=== PATIENT | female | born 1935 | race Caucasian/White ===

== ENCOUNTER 2017-11-19 11:51 | Emergency (ER) | payer MEDICARE, BC ==
--- NOTE | 2017-11-19 11:59 | EDM.PDOC ---
ED HPI GENERAL MEDICAL PROBLEM - General Chief Complaint: Upper Extremity Injury/Pain Stated Complaint: [id number] FELL AND HAS SKIN TEAR ON ARM Time Seen by Provider: 11/19/17 11:59 Source of Information: Reports: Patient, Old Records, RN, RN Notes Reviewed History Limitations: Reports: No Limitations - History of Present Illness INITIAL COMMENTS - FREE TEXT/NARRATIVE: Arrives to ER by POV with c/o a skin tear to the Rt elbow sustained this morning when pt slipped on the ice and fell at her religion. Denies head or neck injury or pain, or any other injury. Pt states that her Rt elbow doesn't really hurt and has full ROM. Last tetanus vaccine >10yrs ago. Onset: Today, Sudden Location: Reports: Upper Extremity, Right Severity: Mild Improves with: Reports: None Worsens with: Reports: None Context: Reports: Other (fall) Associated Symptoms: Reports: No Other Symptoms - Related Data Allergies Allergy/AdvReac Type Severity Reaction Status Date / Time aspirin Allergy Severe Anaphylactic Verified 11/19/17 12:00 Shock lincomycin [From Lincocin] Allergy Severe Anaphylactic Verified 11/19/17 12:00 Shock Penicillins Allergy Severe Anaphylactic Verified 11/19/17 12:00 Shock calcium containing compounds Allergy Unknown unknown Uncoded 11/19/17 12:00 flu shot Allergy Unknown Other Uncoded 11/19/17 12:00 Home Meds: Home Meds Alendronate [Fosamax] 70 mg PO WEEKLY 05/04/16 [History] Citracal + D3 2 tab PO BID 05/04/16 [History] Cyanocobalamin (Vitamin B-12) [Vitamin B-12] 1,000 mcg PO DAILY 05/04/16 [ History] Enalapril [Vasotec] 10 mg PO DAILY 05/04/16 [History] Fish Oil/Rayle-3 Fatty Acids [Fish Oil 1,000 MG] 1 cap PO NOON,GABRIELLA 05/04/16 [ History] Furosemide 20 mg PO BID 05/04/16 [History] Gluc Mancia/Chondro Mancia A/Vit C/Mn [Glucosamine 1,500 Complex Cp] 1 cap PO DAILY [History] Linagliptin [Tradjenta] 5 mg PO .NOON 05/04/16 [History] Metoprolol Tartrate 25 mg PO BID 05/04/16 [History] Omeprazole 20 mg PO ACBREAKFAST 05/04/16 [History] Simvastatin [Zocor] 40 mg PO BEDTIME 05/04/16 [History] metFORMIN HCl [Metformin HCl] 1,000 mg PO BIDMEALS 05/04/16 [History] traMADol [Ultram] 50 mg PO Q8H PRN #15 tablet 05/08/16 [Rx] Docusate Sodium [Colace] 100 mg PO BID cap 05/20/16 [Rx] Sodium Chloride 1 gm PO BID #60 tablet 05/20/16 [Rx] Past Medical History HEENT History: Reports: Cataract Cardiovascular History: Reports: Blood Clots/VTE/DVT, High Cholesterol, Hypertension, Other (See Below) Other Cardiovascular History: "Broken Heart Syndrome" Respiratory History: Reports: None, COPD Gastrointestinal History: Reports: Diverticulosis, GERD Genitourinary History: Reports: Other (See Below) Other Genitourinary History: hyponatremial 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: Musculoskeletal History: Reports: Fracture, Other (See Below) Other Musculoskeletal History: pelvis fracture Neurological History: Reports: None Psychiatric History: Reports: Anxiety, Depression Endocrine/Metabolic History: Reports: Diabetes, Type II, Other (See Below) Other Endocrine/Metabolic History: SIADH Hematologic History: Reports: B12 Deficiency Dermatologic History: Reports: Cellulitis - Infectious Disease History Infectious Disease History: Reports: Chicken Pox - Past Surgical History HEENT Surgical History: Reports: None, Cataract Surgery GI Surgical History: Reports: Cholecystectomy, Colonoscopy, Other (See Below) Female Surgical History: Reports: Breast Biopsy Musculoskeletal Surgical History: Reports: Hip Replacement, Knee Replacement, Other (See Below) Social & Family History - Family History Family Medical History: Unobtainable Cardiac: Reports: [place] Oncologic: Reports: Colon, Lung - Tobacco Use Smoking Status *Q: Never Smoker Second Hand Smoke Exposure: No - Recreational Drug Use Recreational Drug Use: No - Living Situation & Occupation Occupation: Retired Review of Systems - Review of Systems Review Of Systems: ROS reveals no pertinent complaints other than HPI. ED EXAM, GENERAL - Physical Exam Exam: See Below Exam Limited By: No Limitations General Appearance: Alert, WD/WN, No Apparent Distress Throat/Mouth: Normal Voice, No Airway Compromise Head: Atraumatic, Normocephalic Neck: Normal Inspection, Supple, Non-Tender, Full Range of Motion Respiratory/Chest: No Respiratory Distress, Lungs Clear, Normal Breath Sounds, No Accessory Muscle Use, Chest Non-Tender Cardiovascular: Regular Rate, Rhythm Peripheral Pulses: 3+: Radial (L), Radial (R) Back Exam: Normal Inspection Extremities: Normal Inspection, Normal Range of Motion, Non-Tender, Normal Capillary Refill, No Pedal Edema Neurological: Alert, Oriented, Normal Cognition, Normal Gait, No Motor/Sensory Deficits Psychiatric: Normal Affect, Normal Mood Skin Exam: Warm, Dry, No Rash, Wound/Incision (3cm superficial skin tear to Rt lateral elbow, no active bleeding, no FB, clean wound) Course - Vital Signs Last Recorded V/S: Last Vital Signs Temp 37.0 C 11/19/17 12:11 Pulse 74 11/19/17 12:11 Resp 16 11/19/17 12:11 BP 139/74 11/19/17 12:11 Pulse Ox 97 11/19/17 12:11 - Orders/Labs/Meds Orders: Active Orders 24 hr Category Date Time Status Vaccines to be Administered [RC] PER UNIT ROUTINE Care 11/19/17 12:12 Ordered Steri Strips Application [OM.PC] Routine Oth 11/19/17 12:12 Ordered Meds: Medications Discontinued Medications Generic Name Dose Route Start Last Admin Trade Name Freq PRN Reason Stop Dose Admin Diphtheria/Tetanus/Acell Pertussis 0.5 ml 11/19/17 12:12 11/19/17 12:20 Adacel IM 11/19/17 12:13 0.5 ml .ONCE ONE Administration - Re-Assessments/Exams Free Text/Narrative Re-Assessment/Exam: 11/19/17 RN cleansed wound and applied steri-strips and sterile dressing. Departure - Departure Time of Disposition: 12:13 Disposition: Home, Self-Care 01 Condition: Good Clinical Impression: Skin tear of right upper arm without complication Qualifiers: Encounter type: initial encounter Qualified Code(s): S41.111A - Laceration without foreign body of right upper arm, initial encounter Fall due to ice or snow Qualifiers: Encounter type: initial encounter Qualified Code(s): W00.9XXA - Unspecified fall due to ice and snow, initial encounter - Discharge Information Instructions: Skin Tear Care, [id number], Sterile Tape Wound Care Forms: ED Department Discharge Additional Instructions: Follow up in clinic or return to ER if any signs of wound infection develop. - My Orders Last 24 Hours: My Active Orders 11/19/17 12:12 Vaccines to be Administered [RC] PER UNIT ROUTINE Steri Strips Application [OM.PC] Routine - Assessment/Plan Last 24 Hours: My Active Orders 11/19/17 12:12 Vaccines to be Administered [RC] PER UNIT ROUTINE Steri Strips Application [OM.PC] Routine
[2017-11-19 12:12] VITALS: BP 139/74
[2017-11-19] MEDS: Diphtheria,Pertussis(Acell),Tetanus Vaccine 0.5 ML SDV IM ONE (12:20)
== END 2017-11-19 12:30 | disposition home or self-care (01) ==
LOC: DL.ED 11:51
DX: S51.011A Laceration without foreign body of right elbow, initial encounter (principal); E78.00 Pure hypercholesterolemia, unspecified; I10 Essential (primary) hypertension; E11.9 Type 2 diabetes mellitus without complications; Z88.6 Allergy status to analgesic agent; Z88.0 Allergy status to penicillin; Z88.8 Allergy status to other drugs, medicaments and biological substances; Z79.899 Other long term (current) drug therapy; Z23 Encounter for immunization; Z79.84 Long term (current) use of oral hypoglycemic drugs; W00.9XXA Unspecified fall due to ice and snow, initial encounter; Y92.22 Religious institution as the place of occurrence of the external cause
CPT/HCPCS: 90471; 90715; 99283

== ENCOUNTER 2019-03-10 17:13 | Emergency (ER) | payer MEDICARE, BC ==
--- NOTE | 2019-03-10 17:24 | EDM.PDOC ---
ED HPI GENERAL MEDICAL PROBLEM - General Chief Complaint: Skin Complaint Stated Complaint: BLISTER ON FOOT Time Seen by Provider: 03/10/19 17:24 Source of Information: Reports: Patient, Family, RN, RN Notes Reviewed History Limitations: Reports: No Limitations - History of Present Illness INITIAL COMMENTS - FREE TEXT/NARRATIVE: Pt to ER with daughters with c/o blisters and sores to the feet bilaterally. Daughter states the sores and blisters began today. She states she took pictures at noon and they have gotten worse since then. Patient has sores to the left great and second toes, a very large (6cm x 4cm) blister to the inside arch of the medial left foot. Also has small vesicles forming in the medial arch of the right foot. Patient states something similar to this happened about 2 months ago. She also had gotten scabies at the same time from a hotel. Patient denies recent fever or chills, N/V/D, CP, SOB. Denies pain in the feet. Patient states she is diabetic, but has good feeling in her feet. Patient states her skin has been itchy all over. Onset: Today, Sudden - Related Data Allergies Allergy/AdvReac Type Severity Reaction Status Date / Time aspirin Allergy Severe Anaphylactic Verified 03/10/19 17:43 Shock lincomycin [From Lincocin] Allergy Severe Anaphylactic Verified 03/10/19 17:43 Shock Penicillins Allergy Severe Anaphylactic Verified 03/10/19 17:43 Shock levofloxacin [From Levaquin] Allergy Intermediate Redness Verified 03/10/19 17: 43 salicylates Allergy Unknown unknown Verified 03/10/19 17:43 calcium containing compounds Allergy Unknown unknown Uncoded 11/19/17 12:00 Home Meds: Home Meds Alendronate [Fosamax] 70 mg PO WEEKLY 05/04/16 [History] Citracal + D3 2 tab PO BID 05/04/16 [History] Cyanocobalamin (Vitamin B-12) [Vitamin B-12] 1,000 mcg PO DAILY 05/04/16 [ History] Enalapril [Vasotec] 10 mg PO DAILY 05/04/16 [History] Fish Oil/[place]-3 Fatty Acids [Fish Oil 1,000 MG] 1 cap PO DAILY 05/04/16 [ History] Furosemide 20 mg PO DAILY 05/04/16 [History] Gluc Mancia/Chondro Mancia A/Vit C/Mn [Glucosamine 1,500 Complex Cp] 1 cap PO DAILY [History] Omeprazole 20 mg PO ACBREAKFAST 05/04/16 [History] Simvastatin [Zocor] 40 mg PO BEDTIME 05/04/16 [History] metFORMIN HCl [Metformin HCl] 1,000 mg PO BIDMEALS 05/04/16 [History] Latanoprost/Pf [Latanoprost 0.005% Eye Drop] 1 drop EYERT BEDTIME 06/29/18 [ History] Sertraline [Zoloft] 50 mg PO BEDTIME 03/10/19 [History] Past Medical History HEENT History: Reports: Cataract Cardiovascular History: Reports: Blood Clots/VTE/DVT, High Cholesterol, Hypertension, Other (See Below) Other Cardiovascular History: "Broken Heart Syndrome" Respiratory History: Reports: None, COPD Gastrointestinal History: Reports: Diverticulosis, GERD Genitourinary History: Reports: Other (See Below) Other Genitourinary History: 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: Musculoskeletal History: Reports: Fracture, Other (See Below) Other Musculoskeletal History: pelvis fracture, L2 fracture, left wrist fracture Neurological History: Reports: None Psychiatric History: Reports: Anxiety, Depression Endocrine/Metabolic History: Reports: Diabetes, Type II, Other (See Below) Other Endocrine/Metabolic History: SIADH Hematologic History: Reports: B12 Deficiency Dermatologic History: Reports: Cellulitis - Infectious Disease History Infectious Disease History: Reports: Chicken Pox - Past Surgical History HEENT Surgical History: Reports: None, Cataract Surgery, Other (See Below) Other HEENT Surgeries/Procedures: prosthetic left eye GI Surgical History: Reports: Cholecystectomy, Colonoscopy, Other (See Below) Female Surgical History: Reports: Breast Biopsy Musculoskeletal Surgical History: Reports: Hip Replacement, Knee Replacement, Other (See Below) Social & Family History - Family History Family Medical History: Unobtainable Cardiac: Reports: [place] Oncologic: Reports: Colon, Lung - Caffeine Use Caffeine Use: Reports: Coffee, Tea - Living Situation & Occupation Occupation: Retired ED ROS GENERAL - Review of Systems Review Of Systems: ROS reveals no pertinent complaints other than HPI. 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) Ears: Normal External Exam, Hearing Grossly Normal Nose: Normal Inspection Throat/Mouth: Normal Voice, No Airway Compromise Head: Atraumatic, Normocephalic Neck: Normal Inspection Respiratory/Chest: No Respiratory Distress, Lungs Clear, Normal Breath Sounds, No Accessory Muscle Use, Chest Non-Tender Cardiovascular: Normal Peripheral Pulses, Regular Rate, Rhythm, No Edema, No Gallop, No JVD, No Murmur, No Rub Peripheral Pulses: 2+: Radial (L), Radial (R), Dorsalis Pedis (L), Dorsalis Pedis (R) GI/Abdominal: Normal Bowel Sounds, Soft, Non-Tender (Female) Exam: Deferred Rectal (Female) Exam: Deferred Back Exam: Normal Inspection, Full Range of Motion Extremities: Normal Inspection, Normal Range of Motion, Non-Tender, No Pedal Edema, Normal Capillary Refill Neurological: Alert, Oriented, CN II-XII Intact, Normal Cognition, Normal Gait, Normal Reflexes, No Motor/Sensory Deficits Psychiatric: Normal Affect, Normal Mood Skin: Warm, Other (Left foot medial arch 6cm x 4cm blister, Right foot medial arch vesicles ) Location, Skin: Upper Extremity, Right, Lower Extremity, Left Characteristics: Vesicular (right), Bullous (left) Lymphatic: No Adenopathy Course - Vital Signs Last Recorded V/S: Last Vital Signs Temp 96.4 F 03/10/19 17:32 Pulse 70 03/10/19 17:32 Resp 14 03/10/19 17:32 BP 180/56 H 03/10/19 17:32 Pulse Ox 98 03/10/19 17:32 - Orders/Labs/Meds Labs: Laboratory Tests 03/10/19 03/10/19 03/10/19 Range/Units 17:55 17:55 17:55 WBC 7.5 (5.0-10.0) 10^3/uL RBC 4.58 (4.2-5.4) 10^6/uL Hgb 13.2 (12.0-16.0) g/dL Hct 38.3 (37.0-47.0) % MCV 83.6 (80-100) fL MCH 28.8 (27.0-34.0) pg MCHC 34.5 (33.0-35.0) g/dL Plt Count 267 D (150-450) 10^3/uL Neut % (Auto) 60.0 (42.2-75.2) % Lymph % (Auto) 19.8 L (20.5-50.1) % Estill % (Auto) 6.0 (2-8) % Eos % (Auto) 13.5 H (1.0-3.0) % Baso % (Auto) 0.7 (0.0-1.0) % ESR 3 (0-20) mm/hr Sodium 132 L (135-145) mmol/L Potassium 4.1 (3.6-5.0) mmol/L Chloride 95 L (101-111) mmol/L Carbon Dioxide 26.0 (21.0-31.0) mmol/L Anion Gap 15.1 BUN 17 (7-18) mg/dL Creatinine 0.7 (0.6-1.3) mg/dL Est Cr Clr Drug Dosing 51.75 mL/min Estimated GFR (MDRD) > 60 BUN/Creatinine Ratio 24.28 Glucose 194 H (74-105) mg/dL Lactic Acid (0.5-2.2) mmol/L Calcium 9.5 (8.4-10.2) mg/dl Total Bilirubin 0.6 (0.2-1.0) mg/dL AST 18 (10-42) IU/L ALT 15 (10-60) IU/L Alkaline Phosphatase 45 (42-121) IU/L C-Reactive Protein (0.0-1.3) mg/dL Total Protein 6.6 L (6.7-8.2) g/dl Albumin 4.1 (3.2-5.5) g/dl Globulin 2.5 Albumin/Globulin Ratio 1.64 03/10/19 03/10/19 Range/Units 17:55 17:55 WBC (5.0-10.0) 10^3/uL RBC (4.2-5.4) 10^6/uL Hgb (12.0-16.0) g/dL Hct (37.0-47.0) % MCV (80-100) fL MCH (27.0-34.0) pg MCHC (33.0-35.0) g/dL Plt Count (150-450) 10^3/uL Neut % (Auto) (42.2-75.2) % Lymph % (Auto) (20.5-50.1) % Estill % (Auto) (2-8) % Eos % (Auto) (1.0-3.0) % Baso % (Auto) (0.0-1.0) % ESR (0-20) mm/hr Sodium (135-145) mmol/L Potassium (3.6-5.0) mmol/L Chloride (101-111) mmol/L Carbon Dioxide (21.0-31.0) mmol/L Anion Gap BUN (7-18) mg/dL Creatinine (0.6-1.3) mg/dL Est Cr Clr Drug Dosing mL/min Estimated GFR (MDRD) BUN/Creatinine Ratio Glucose (74-105) mg/dL Lactic Acid 1.3 (0.5-2.2) mmol/L Calcium (8.4-10.2) mg/dl Total Bilirubin (0.2-1.0) mg/dL AST (10-42) IU/L ALT (10-60) IU/L Alkaline Phosphatase (42-121) IU/L C-Reactive Protein 0.5 (0.0-1.3) mg/dL Total Protein (6.7-8.2) g/dl Albumin (3.2-5.5) g/dl Globulin Albumin/Globulin Ratio Meds: Medications Discontinued Medications Generic Name Dose Route Start Last Admin Trade Name Freq PRN Reason Stop Dose Admin Doxycycline Hyclate 100 mg 03/10/19 18:11 03/10/19 18:26 Vibramycin PO 03/10/19 18:12 100 mg ONETIME ONE Administration Methylprednisolone Sodium Succinate 125 mg 03/10/19 18:18 03/10/19 18:26 Solu-Medrol IVPUSH 03/10/19 18:19 125 mg ONETIME ONE Administration Silver Sulfadiazine 1 gm 03/10/19 18:46 03/10/19 19:08 Silvadene 1% Cream 50 Gm TOP 03/10/19 18:47 1 gm ONETIME ONE Administration Triamcinolone Acetonide 80 mg 03/10/19 18:05 03/10/19 18:37 Kenalog-40 INJECT 03/10/19 18:06 Not Given ONETIME ONE Departure - Departure Time of Disposition: 18:48 Disposition: Home, Self-Care 01 Condition: Fair Clinical Impression: Blisters of multiple sites Atopic dermatitis Qualifiers: Atopic dermatitis type: unspecified Qualified Code(s): L20.9 - Atopic dermatitis, unspecified - Discharge Information *PRESCRIPTION DRUG MONITORING PROGRAM REVIEWED*: No *COPY OF PRESCRIPTION DRUG MONITORING REPORT IN PATIENT CHATA: No Instructions: Atopic Dermatitis, Contact Dermatitis, [id number] Referrals: PCP,None [Primary Care Provider] - Forms: ED Department Discharge Additional Instructions: Keep areas covered with gauze and silvadene until healed Apply silvadene 2-3 times daily until healed RX: Doxycycline and Prednisone Follow up with your primary care facility on Wednesday for possible MRI of the toes May follow up with podiatry
[2019-03-10 17:43] VITALS: BP 180/56
[2019-03-10] MEDS ORDERED: Triamcinolone Acetonide 40 MG/ML 1 ML MDV INJECT ONE (18:05)
[2019-03-10] MEDS ORDERED: Doxycycline 100 MG Cap PO ONE (18:11)
[2019-03-10] MEDS ORDERED: methylPREDNISolone Sodium Succinate 125 MG/2 ML SDV IVPUSH ONE (18:18)
[2019-03-10 18:29] LABS: ANION GAP 15.1; CHLORIDE,CL 95 mmol/L (101-111); SODIUM,NA 132 mmol/L (135-145)
[2019-03-10] MEDS ORDERED: Silver Sulfadiazine 1% Crm 50 GM Tube TOP ONE (18:46)
== END 2019-03-10 19:12 | disposition home or self-care (01) ==
LOC: DL.ED 17:13
DX: S90.822A Blister (nonthermal), left foot, initial encounter (principal); L20.9 Atopic dermatitis, unspecified; H54.7 Unspecified visual loss; J44.9 Chronic obstructive pulmonary disease, unspecified; I10 Essential (primary) hypertension; E78.00 Pure hypercholesterolemia, unspecified; K21.9 Gastro-esophageal reflux disease without esophagitis; F41.9 Anxiety disorder, unspecified; F32.9 Major depressive disorder, single episode, unspecified; E11.9 Type 2 diabetes mellitus without complications; Z79.84 Long term (current) use of oral hypoglycemic drugs; Z79.899 Other long term (current) drug therapy; Z88.6 Allergy status to analgesic agent; Z88.0 Allergy status to penicillin; Z88.8 Allergy status to other drugs, medicaments and biological substances; Z88.1 Allergy status to other antibiotic agents; X58.XXXA Exposure to other specified factors, initial encounter
CPT/HCPCS: 36415; 80053; 83605; 85025; 85651; 86140; 87040; 96372; 99283; A9270; J2930

== ENCOUNTER 2019-06-16 03:12 | Emergency (ER) | payer MEDICARE, BC ==
--- NOTE | 2019-06-16 03:19 | EDM.PDOC ---
ED HPI GENERAL MEDICAL PROBLEM - General Chief Complaint: Lower Extremity Injury/Pain Stated Complaint: AMBULANCE Time Seen by Provider: 06/16/19 03:14 Source of Information: Reports: Patient, EMS History Limitations: Reports: No Limitations - History of Present Illness INITIAL COMMENTS - FREE TEXT/NARRATIVE: EMS was told pt visiting daughter and was in kitchen and tripped over something , arrived with pt lying on floor alert c/o right hip pain. pt states was pushing a chair and tripped on something and fell. denies head/neck injury or pain. - Related Data Allergies Allergy/AdvReac Type Severity Reaction Status Date / Time aspirin Allergy Severe Anaphylactic Verified 06/16/19 03:16 Shock lincomycin [From Lincocin] Allergy Severe Anaphylactic Verified 06/16/19 03:16 Shock Penicillins Allergy Severe Anaphylactic Verified 06/16/19 03:16 Shock levofloxacin [From Levaquin] Allergy Intermediate Redness Verified 06/16/19 03: 16 salicylates Allergy Unknown unknown Verified 06/16/19 03:16 calcium containing compounds Allergy Unknown unknown Uncoded 06/16/19 03:16 Home Meds: Home Meds Alendronate [Fosamax] 70 mg PO WEEKLY 05/04/16 [History] Citracal + D3 2 tab PO BID 05/04/16 [History] Cyanocobalamin (Vitamin B-12) [Vitamin B-12] 1,000 mcg PO DAILY 05/04/16 [ History] Enalapril [Vasotec] 10 mg PO DAILY 05/04/16 [History] Fish Oil/[place]-3 Fatty Acids [Fish Oil 1,000 MG] 1 cap PO DAILY 05/04/16 [ History] Furosemide 20 mg PO DAILY 05/04/16 [History] Gluc Mancia/Chondro Mancia A/Vit C/Mn [Glucosamine 1,500 Complex Cp] 1 cap PO DAILY [History] Omeprazole 20 mg PO ACBREAKFAST 05/04/16 [History] Simvastatin [Zocor] 40 mg PO BEDTIME 05/04/16 [History] metFORMIN HCl [Metformin HCl] 1,000 mg PO BIDMEALS 05/04/16 [History] Latanoprost/Pf [Latanoprost 0.005% Eye Drop] 1 drop EYERT BEDTIME 06/29/18 [ History] Sertraline [Zoloft] 50 mg PO BEDTIME 03/10/19 [History] Past Medical History HEENT History: Reports: Cataract Cardiovascular History: Reports: Blood Clots/VTE/DVT, High Cholesterol, Hypertension, Other (See Below) Other Cardiovascular History: "Broken Heart Syndrome" Respiratory History: Reports: None, COPD Gastrointestinal History: Reports: Diverticulosis, GERD Genitourinary History: Reports: Other (See Below) Other Genitourinary History: hyponatremial [employer]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 History: Reports: Musculoskeletal History: Reports: Fracture, Other (See Below) Other Musculoskeletal History: pelvis fracture, L2 fracture, left wrist fracture Neurological History: Reports: None Psychiatric History: Reports: Anxiety, Depression Endocrine/Metabolic History: Reports: Diabetes, Type II, Other (See Below) Other Endocrine/Metabolic History: SIADH Hematologic History: Reports: B12 Deficiency Dermatologic History: Reports: Cellulitis - Infectious Disease History Infectious Disease History: Reports: Chicken Pox - Past Surgical History HEENT Surgical History: Reports: None, Cataract Surgery, Other (See Below) Other HEENT Surgeries/Procedures: prosthetic left eye GI Surgical History: Reports: Cholecystectomy, Colonoscopy, Other (See Below) Female Surgical History: Reports: Breast Biopsy Musculoskeletal Surgical History: Reports: Hip Replacement, Knee Replacement, Other (See Below) Social & Family History - Family History Family Medical History: Unobtainable Cardiac: Reports: [place] Oncologic: Reports: Colon, Lung - Caffeine Use Caffeine Use: Reports: Coffee, Tea - Living Situation & Occupation Occupation: Retired Review of Systems - Review of Systems Review Of Systems: ROS reveals no pertinent complaints other than HPI. ED EXAM, GENERAL - Physical Exam Exam: See Below Exam Limited By: No Limitations General Appearance: Alert, WD/WN, Mild Distress, Other (right hip when moved) Eye Exam: Left Eye: Other (blind) Ears: Hearing Loss Throat/Mouth: Normal Voice, No Airway Compromise Head: Atraumatic Neck: Non-Tender, Full Range of Motion Respiratory/Chest: No Respiratory Distress Cardiovascular: Regular Rate, Rhythm GI/Abdominal: Soft, Non-Tender Extremities: Other (right leg shorter, NV wnl, tender R/P.) Neurological: Alert, Oriented, Normal Cognition Psychiatric: Normal Affect, Normal Mood Skin Exam: Warm, Dry, Normal Color Lymphatic: No Adenopathy Course - Vital Signs Last Recorded V/S: Last Vital Signs Temp 36.6 C 06/16/19 03:17 Pulse 60 06/16/19 03:17 Resp 18 06/16/19 03:17 BP 170/69 H 06/16/19 03:17 Pulse Ox - Orders/Labs/Meds Orders: Active Orders 24 hr Category Date Time Status Chest 1V Frontal [CR] Urgent Exams 06/16/19 03:28 Taken Hip Min 2V or 3V w Pelvis Rt [CR] Stat Exams 06/16/19 03:13 Taken Labs: Laboratory Tests 06/16/19 06/16/19 Range/Units 03:27 03:27 WBC 8.8 (5.0-10.0) 10^3/uL RBC 4.60 (4.2-5.4) 10^6/uL Hgb 13.3 (12.0-16.0) g/dL Hct 38.4 (37.0-47.0) % MCV 83.5 (80-100) fL MCH 28.9 (27.0-34.0) pg MCHC 34.6 (33.0-35.0) g/dL Plt Count 283 (150-450) 10^3/uL Neut % (Auto) 62.2 (42.2-75.2) % Lymph % (Auto) 31.4 (20.5-50.1) % Clarke % (Auto) 5.3 (2-8) % Eos % (Auto) 0.6 L (1.0-3.0) % Baso % (Auto) 0.5 (0.0-1.0) % Add Manual Diff Yes Neutrophils % (Manual) 59 (42-75) % Band Neutrophils % 2 % Lymphocytes % (Manual) 36 (20-50) % Monocytes % (Manual) 3 (2-8) % Sodium 134 L (135-145) mmol/L Potassium 3.8 (3.6-5.0) mmol/L Chloride 96 L (101-111) mmol/L Carbon Dioxide 27.0 (21.0-31.0) mmol/L Anion Gap 14.8 BUN 27 H (7-18) mg/dL Creatinine 1.0 (0.6-1.3) mg/dL Est Cr Clr Drug Dosing 34.02 mL/min Estimated GFR (MDRD) 53 BUN/Creatinine Ratio 27.00 Glucose 228 H (74-105) mg/dL Calcium 10.1 (8.4-10.2) mg/dl Total Bilirubin 0.9 (0.2-1.0) mg/dL AST 16 (10-42) IU/L ALT 18 (10-60) IU/L Alkaline Phosphatase 48 (42-121) IU/L Total Protein 6.4 L (6.7-8.2) g/dl Albumin 3.7 (3.2-5.5) g/dl Globulin 2.7 Albumin/Globulin Ratio 1.37 Meds: Medications Discontinued Medications Generic Name Dose Route Start Last Admin Trade Name Kaity PRN Reason Stop Dose Admin Fentanyl 50 mcg 06/16/19 03:41 06/16/19 03:54 Sublimaze IVPUSH 06/16/19 03:42 50 mcg ONETIME ONE Administration - Re-Assessments/Exams Free Text/Narrative Re-Assessment/Exam: 06/16/19 04:12 case discussed with ortho Dr Marsh @ who kindly accepted pt. Departure - Departure Time of Disposition: 04:13 Disposition: DC/Tfer to Acute Hospital 02 Condition: Good Clinical Impression: Hip fracture, intertrochanteric Qualifiers: Encounter type: initial encounter Fracture type: closed Fracture alignment: nondisplaced Laterality: right Qualified Code(s): S72.144A - Nondisplaced intertrochanteric fracture of right femur, initial encounter for closed fracture - Discharge Information Forms: Interfacility Transfer EMTALA - My Orders Last 24 Hours: My Active Orders 06/16/19 03:13 Hip Min 2V or 3V w Pelvis Rt [CR] Stat 06/16/19 03:28 Chest 1V Frontal [CR] Urgent - Assessment/Plan Last 24 Hours: My Active Orders 06/16/19 03:13 Hip Min 2V or 3V w Pelvis Rt [CR] Stat 06/16/19 03:28 Chest 1V Frontal [CR] Urgent
[2019-06-16 03:36] VITALS: BP 170/69; PULSE 60
[2019-06-16 03:53] LABS: ANION GAP 14.8
[2019-06-16] MEDS: fentaNYL 100 MCG/2 ML SDV IVPUSH ONE (03:54)
== END 2019-06-16 05:15 ==
LOC: DL.ED 03:12
DX: S72.144A Nondisplaced intertrochanteric fracture of right femur, initial encounter for closed fracture (principal); I10 Essential (primary) hypertension; E11.9 Type 2 diabetes mellitus without complications; J44.9 Chronic obstructive pulmonary disease, unspecified; K21.9 Gastro-esophageal reflux disease without esophagitis; E78.00 Pure hypercholesterolemia, unspecified; F41.9 Anxiety disorder, unspecified; F32.9 Major depressive disorder, single episode, unspecified; Z86.718 Personal history of other venous thrombosis and embolism; Z88.0 Allergy status to penicillin; Z88.6 Allergy status to analgesic agent; Z88.1 Allergy status to other antibiotic agents; Z88.8 Allergy status to other drugs, medicaments and biological substances; Z79.84 Long term (current) use of oral hypoglycemic drugs; Z79.899 Other long term (current) drug therapy; W01.0XXA Fall on same level from slipping, tripping and stumbling without subsequent striking against object, initial encounter; Y93.89 Activity, other specified; Y92.89 Other specified places as the place of occurrence of the external cause
CPT/HCPCS: 36415; 51702; 71045; 73502; 80053; 81001; 85025; 96374; 99285; J3010

== ENCOUNTER 2019-06-20 09:48 | Inpatient (IN) | payer MEDICARE, BC ==
[2019-06-20] MEDS ORDERED: Docusate Sodium 100 MG Cap PO PRN (12:00)
[2019-06-20] MEDS ORDERED: Ondansetron 4 MG Tab.DIS PO PRN (12:00)
[2019-06-20] MEDS ORDERED: Magnesium Hydroxide 400 MG/5 ML Susp 30 ML Cup PO PRN ×2 (12:00→12:03)
[2019-06-20] MEDS ORDERED: Polyethylene Glycol 3350 Powder 17 GM Packet PO PRN (12:00)
[2019-06-20] MEDS ORDERED: SENNOSIDES 8.6 MG PO PRN (12:03)
[2019-06-20] MEDS ORDERED: 50% Dextrose in Water 50 ML Syringe IVPUSH PRN (12:15)
[2019-06-20] MEDS: Acetaminophen 500 MG Tab PO SCH ×2 (14:26→21:30)
--- NOTE | 2019-06-20 15:47 | HP ---
CHIEF COMPLAINT: Status post right total hip arthroplasty needing physical therapy and occupational therapy and admission to the Swing Bed. HISTORY OF PRESENTING ILLNESS: Ms. 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 At this time, the patient complains of very minimal pain at the surgical site, only 1 to 2/10 on ambulation, nonradiating, not associated with any nausea or vomiting. Denies any chest pain. No shortness of breath. No abdominal pain. The patient denied any history of chest pains on exertion. No history of dyspnea on exertion. No history of orthopnea or paroxysmal nocturnal dyspnea. The patient denied any history of hematemesis, hematochezia, or melenic stools. Normal bowel and bladder habits otherwise. REVIEW OF SYSTEMS: A complete review of system including skin, ear, nose, and throat, cardiovascular system, respiratory system, gastrointestinal system, genitourinary system, hematology, oncology, neurology, allergy, immunology, constitutional were all evaluated and were negative except for the above-said notes. PAST MEDICAL HISTORY: Significant for: 1. Hypertension. 2. Hyperlipidemia. 3. Type 2 diabetes mellitus. 4. History of Takotsubo's syndrome. 5. Giant-cell arteritis. 6. Bullous pemphigoid. 7. Chronic steroid therapy. 8. History of DVT in the past. 9. Osteoporosis. 10.Anemia. 11.Abdominal aortic aneurysm. PAST SURGICAL HISTORY: Significant for: 1. Total hip replacement on the left side in the past. 2. Laparoscopic cholecystectomy. 3. Colonoscopy. 4. Breast biopsy. 5. Arterial biopsy. 6. Abdominal exploration surgery. FAMILY HISTORY: Significant for lung cancer and liver cancer in her mother, coronary artery disease and diabetes in her father, diabetes and heart disease in her brother, and lung cancer and liver cancer in her another brother. SOCIAL HISTORY: The patient denies any history of smoking tobacco, history of occasional alcohol intake. ALLERGIES: The patient noted to have allergies to aspirin which causes anaphylactic shock, penicillins which causes anaphylactic shock, levofloxacin which causes redness, salicylate, and calcium containing compounds. HOME MEDICATIONS: 1. Risperdal 0.5 mg at bedtime. 2. Senna 8.6 mg twice a day. 3. Prednisone 20 mg daily. 4. Simvastatin 40 mg at bedtime. 5. Vitamin B12 1000 mcg daily. 6. Omeprazole 20 mg daily. 7. CellCept 1000 mg twice a day. 8. Milk of magnesium 30 mL daily as needed. 9. Metformin 1000 mg twice a day. 10.Metoprolol 50 mg twice a day. 11.Lasix 20 mg daily. 12.Lovenox 40 mg daily. 13.Enalapril 10 mg daily. 14.Fosamax 70 mg weekly. 15.Tylenol Extra-Strength q.8 hours. 16.Fish oil 1 capsule daily. PHYSICAL EXAMINATION: Vital Signs: Temperature of 97.9, pulse of 62, blood pressure 135/59, respiratory rate of 18, and saturating at 95% on room air. General Appearance: The patient is well oriented to time, place, and person. Follows commands spontaneously. Cardiovascular System: S1, S2 heard with normal intensity. No gallops. Respiratory System: Clear to auscultation bilaterally. No wheeze. No crepitations. Abdomen: Soft. Bowel sounds positive. Nontender. No rigidity. No guarding. No rebound tenderness. Extremities: No edema, bilateral lower extremities. Neurologic: No gross focal neurological deficit. LABORATORY DATA: As obtained from [facility]: Sodium 133, potassium 3.6, chloride 98, bicarb 25, creatinine 0.9. Glucose 270. ASSESSMENT: 1. Right-sided intertrochanteric femur fracture, status post gamma nail on June 16, 2019. 2. Hypertension. 3. Hyperlipidemia. 4. Type 2 diabetes mellitus. 5. Chronic steroid therapy. 6. History of giant cell arthritis and bullous pemphigoid, requiring prednisone treatment. 7. History of abdominal aortic aneurysm. 8. History of deep venous thrombosis in the past. PLAN: 1. Right intertrochanteric femur fracture. The patient required physical therapy and occupational therapy. She denies any ongoing pain. Continue the oral pain medications as needed. She is status post gamma nail fixation on June 16. 2. Hypertension. We will continue with current treatment plan. Continue with antihypertensive medications. 3. Type 2 diabetes mellitus. She has been on steroids, so this could be resulting in uncontrolled diabetes. Continue with metformin. We will have her on correction dose insulin as needed. Have her on hypoglycemic protocol. Try to avoid any hypoglycemic episodes. 4. Chronic steroid therapy. The patient has underlying giant-cell arteritis resulting left eye blindness and also bullous pemphigoid. We will continue with current dose of steroids. She is also noted to be on immunosuppressive therapy with CellCept. 5. DVT prophylaxis. The patient had history of DVT in the past. We will continue with the Lovenox for DVT prophylaxis on this admission. 6. We will order for basic labs including CBC and a BMP in a.m. 7. Code status: The patient wants to be full code. Discussed with family members at bedside. Reviewed the labs and medications. Reviewed the charts obtained from [facility]. [facility] /[id number]
[2019-06-20] MEDS: metFORMIN 500 MG Tab PO SCH (17:15)
[2019-06-20] MEDS: Insulin Lispro 100 Units/ML 3 ML Vial SUBCUT SCH ×2 (17:16→21:28)
[2019-06-20] MEDS: Latanoprost 0.005% Ophth Soln 2.5 ML Bottle EYERT SCH (21:26)
[2019-06-20] MEDS: Calcium Carbonate/Vitamin D3 1250 MG-200 Unit Tab PO SCH (21:27)
[2019-06-20] MEDS: Mycophenolate Mofetil 250 MG Cap PO SCH (21:28)
[2019-06-20] MEDS: Metoprolol Tartrate 50 MG Tab PO SCH (21:29)
[2019-06-20] MEDS: Simvastatin 40 MG Tab PO SCH (21:30)
[2019-06-20] MEDS: risperiDONE 0.5 MG Tab PO SCH (21:30)
[2019-06-21] MEDS: Acetaminophen 500 MG Tab PO SCH ×3 (05:56→21:53)
[2019-06-21] MEDS: Omeprazole 20 MG Cap.CR PO SCH (05:56)
[2019-06-21 07:15] LABS: ANION GAP 14.2; CHLORIDE,CL 97 mmol/L (101-111); SODIUM,NA 133 mmol/L (135-145)
[2019-06-21] MEDS: Cyanocobalamin (Vitamin B12) 1,000 MCG Tab PO SCH (08:46)
[2019-06-21] MEDS: Calcium Carbonate/Vitamin D3 1250 MG-200 Unit Tab PO SCH ×2 (08:46→21:51)
[2019-06-21] MEDS: Furosemide 20 MG Tab PO SCH (08:46)
[2019-06-21] MEDS: Metoprolol Tartrate 50 MG Tab PO SCH ×2 (08:46→21:51)
[2019-06-21] MEDS: predniSONE 20 MG Tab PO SCH (08:47)
[2019-06-21] MEDS: metFORMIN 500 MG Tab PO SCH ×2 (08:47→17:27)
[2019-06-21] MEDS: Enoxaparin 40 MG/0.4 ML Syringe SUBCUT SCH (08:47)
[2019-06-21] MEDS: Insulin Lispro 100 Units/ML 3 ML Vial SUBCUT SCH ×4 (08:48→22:14)
[2019-06-21] MEDS: Mycophenolate Mofetil 250 MG Cap PO SCH ×2 (08:48→21:52)
[2019-06-21] MEDS: risperiDONE 0.5 MG Tab PO SCH (21:51)
[2019-06-21] MEDS: Simvastatin 40 MG Tab PO SCH (21:53)
[2019-06-21] MEDS: Latanoprost 0.005% Ophth Soln 2.5 ML Bottle EYERT SCH (21:55)
[2019-06-22] MEDS: Acetaminophen 500 MG Tab PO SCH ×3 (06:15→21:40)
[2019-06-22] MEDS: Omeprazole 20 MG Cap.CR PO SCH (06:15)
[2019-06-22] MEDS: Furosemide 20 MG Tab PO SCH (08:19)
[2019-06-22] MEDS: Metoprolol Tartrate 50 MG Tab PO SCH ×2 (08:19→20:28)
[2019-06-22] MEDS: predniSONE 20 MG Tab PO SCH (08:20)
[2019-06-22] MEDS: Calcium Carbonate/Vitamin D3 1250 MG-200 Unit Tab PO SCH ×2 (08:20→20:20)
[2019-06-22] MEDS: Cyanocobalamin (Vitamin B12) 1,000 MCG Tab PO SCH (08:20)
[2019-06-22] MEDS: metFORMIN 500 MG Tab PO SCH ×2 (08:20→17:31)
[2019-06-22] MEDS: Insulin Lispro 100 Units/ML 3 ML Vial SUBCUT SCH ×4 (08:21→20:26)
[2019-06-22] MEDS: Mycophenolate Mofetil 250 MG Cap PO SCH ×2 (08:22→20:20)
[2019-06-22] MEDS: Enoxaparin 40 MG/0.4 ML Syringe SUBCUT SCH (08:23)
[2019-06-22] MEDS: risperiDONE 0.5 MG Tab PO SCH (20:29)
[2019-06-22] MEDS: Latanoprost 0.005% Ophth Soln 2.5 ML Bottle EYERT SCH (20:29)
[2019-06-22] MEDS: Simvastatin 40 MG Tab PO SCH (20:30)
[2019-06-23] MEDS: Acetaminophen 500 MG Tab PO SCH ×3 (05:47→22:16)
[2019-06-23] MEDS: Omeprazole 20 MG Cap.CR PO SCH (05:48)
[2019-06-23] MEDS: Metoprolol Tartrate 50 MG Tab PO SCH ×2 (08:23→22:15)
[2019-06-23] MEDS: Calcium Carbonate/Vitamin D3 1250 MG-200 Unit Tab PO SCH ×2 (08:23→22:15)
[2019-06-23] MEDS: Cyanocobalamin (Vitamin B12) 1,000 MCG Tab PO SCH (08:23)
[2019-06-23] MEDS: Mycophenolate Mofetil 250 MG Cap PO SCH ×2 (08:23→22:16)
[2019-06-23] MEDS: metFORMIN 500 MG Tab PO SCH ×2 (08:24→17:10)
[2019-06-23] MEDS: predniSONE 20 MG Tab PO SCH (08:24)
[2019-06-23] MEDS: Furosemide 20 MG Tab PO SCH (08:24)
[2019-06-23] MEDS: Insulin Lispro 100 Units/ML 3 ML Vial SUBCUT SCH ×4 (08:24→22:19)
[2019-06-23] MEDS: Enoxaparin 40 MG/0.4 ML Syringe SUBCUT SCH (08:24)
--- NOTE | 2019-06-23 13:36 | PN ---
DATE: 06/23/2019 SUBJECTIVE: The patient is doing fairly well. She denies any ongoing complaints. She denies any chest pain or shortness of breath, fever or chills. There are no concerns noted from the nursing staff. OBJECTIVE: Vital Signs: Blood pressure is 140/59, pulse 73, respiration of 18, and temperature of 96.8. Heart: Regular rate and rhythm. Normal S1 and S2. No gallops. No rubs. Lungs: Equal bilaterally. No crackles. No wheezing. Abdomen: Soft and nontender. Extremities: Negative for any calf tenderness or any significant pedal edema. MEDICATIONS: Reviewed. PLAN: We will continue with her present management and continue with PT and OT. [facility] /[id number]
[2019-06-23] MEDS: Simvastatin 40 MG Tab PO SCH (22:16)
[2019-06-23] MEDS: risperiDONE 0.5 MG Tab PO SCH (22:17)
[2019-06-23] MEDS: Latanoprost 0.005% Ophth Soln 2.5 ML Bottle EYERT SCH (22:20)
[2019-06-24] MEDS: Acetaminophen 500 MG Tab PO SCH ×3 (06:04→21:14)
[2019-06-24] MEDS: Omeprazole 20 MG Cap.CR PO SCH (06:04)
[2019-06-24] MEDS: Furosemide 20 MG Tab PO SCH (08:29)
[2019-06-24] MEDS: metFORMIN 500 MG Tab PO SCH ×2 (08:29→17:23)
[2019-06-24] MEDS: Calcium Carbonate/Vitamin D3 1250 MG-200 Unit Tab PO SCH ×2 (08:29→21:13)
[2019-06-24] MEDS: Cyanocobalamin (Vitamin B12) 1,000 MCG Tab PO SCH (08:29)
[2019-06-24] MEDS: Metoprolol Tartrate 50 MG Tab PO SCH ×2 (08:29→21:14)
[2019-06-24] MEDS: Mycophenolate Mofetil 250 MG Cap PO SCH (08:30)
[2019-06-24] MEDS: predniSONE 20 MG Tab PO SCH (08:30)
[2019-06-24] MEDS: Insulin Lispro 100 Units/ML 3 ML Vial SUBCUT SCH ×4 (08:31→21:28)
[2019-06-24] MEDS: Enoxaparin 40 MG/0.4 ML Syringe SUBCUT SCH (08:33)
[2019-06-24] MEDS: risperiDONE 0.5 MG Tab PO SCH (21:13)
[2019-06-24] MEDS: Simvastatin 40 MG Tab PO SCH (21:14)
[2019-06-24] MEDS: Latanoprost 0.005% Ophth Soln 2.5 ML Bottle EYERT SCH (21:15)
[2019-06-24] MEDS: MYCOPHENOLATE 500 MG PO SCH (22:17)
[2019-06-25] MEDS: Mycophenolate Mofetil 250 MG Cap PO SCH (00:02)
[2019-06-25] MEDS: Omeprazole 20 MG Cap.CR PO SCH (05:55)
[2019-06-25] MEDS: Acetaminophen 500 MG Tab PO SCH ×3 (05:55→21:19)
[2019-06-25] MEDS: predniSONE 20 MG Tab PO SCH (08:15)
[2019-06-25] MEDS: Enoxaparin 40 MG/0.4 ML Syringe SUBCUT SCH (08:15)
[2019-06-25] MEDS: Furosemide 20 MG Tab PO SCH (08:17)
[2019-06-25] MEDS: Calcium Carbonate/Vitamin D3 1250 MG-200 Unit Tab PO SCH ×2 (08:17→21:18)
[2019-06-25] MEDS: Metoprolol Tartrate 50 MG Tab PO SCH ×2 (08:17→21:18)
[2019-06-25] MEDS: Cyanocobalamin (Vitamin B12) 1,000 MCG Tab PO SCH (08:18)
[2019-06-25] MEDS: MYCOPHENOLATE 500 MG PO SCH ×2 (08:18→21:17)
[2019-06-25] MEDS: metFORMIN 500 MG Tab PO SCH ×2 (08:18→17:18)
[2019-06-25] MEDS: Insulin Lispro 100 Units/ML 3 ML Vial SUBCUT SCH ×4 (08:20→21:15)
[2019-06-25] MEDS: Latanoprost 0.005% Ophth Soln 2.5 ML Bottle EYERT SCH (21:19)
[2019-06-25] MEDS: Simvastatin 40 MG Tab PO SCH (21:19)
[2019-06-25] MEDS: risperiDONE 0.5 MG Tab PO SCH (21:19)
[2019-06-26] MEDS: Omeprazole 20 MG Cap.CR PO SCH (05:45)
[2019-06-26] MEDS: Acetaminophen 500 MG Tab PO SCH ×3 (05:45→21:23)
[2019-06-26] MEDS: Insulin Lispro 100 Units/ML 3 ML Vial SUBCUT SCH ×4 (08:13→21:25)
[2019-06-26] MEDS: Calcium Carbonate/Vitamin D3 1250 MG-200 Unit Tab PO SCH ×2 (08:19→21:23)
[2019-06-26] MEDS: metFORMIN 500 MG Tab PO SCH ×2 (08:19→17:23)
[2019-06-26] MEDS: Metoprolol Tartrate 50 MG Tab PO SCH ×2 (08:20→21:23)
[2019-06-26] MEDS: Cyanocobalamin (Vitamin B12) 1,000 MCG Tab PO SCH (08:20)
[2019-06-26] MEDS: predniSONE 20 MG Tab PO SCH (08:20)
[2019-06-26] MEDS: Enoxaparin 40 MG/0.4 ML Syringe SUBCUT SCH (08:21)
[2019-06-26] MEDS: MYCOPHENOLATE 500 MG PO SCH ×2 (08:21→21:24)
[2019-06-26] MEDS: Furosemide 20 MG Tab PO SCH (08:21)
[2019-06-26] MEDS: Simvastatin 40 MG Tab PO SCH (21:23)
[2019-06-26] MEDS: risperiDONE 0.5 MG Tab PO SCH (21:23)
[2019-06-26] MEDS: Latanoprost 0.005% Ophth Soln 2.5 ML Bottle EYERT SCH (21:27)
[2019-06-27] MEDS: Acetaminophen 500 MG Tab PO SCH ×3 (05:08→21:27)
[2019-06-27] MEDS: Omeprazole 20 MG Cap.CR PO SCH (05:08)
[2019-06-27] MEDS: Insulin Lispro 100 Units/ML 3 ML Vial SUBCUT SCH ×4 (08:01→21:25)
[2019-06-27] MEDS: Calcium Carbonate/Vitamin D3 1250 MG-200 Unit Tab PO SCH ×2 (08:23→21:27)
[2019-06-27] MEDS: metFORMIN 500 MG Tab PO SCH ×2 (08:24→17:55)
[2019-06-27] MEDS: Metoprolol Tartrate 50 MG Tab PO SCH ×2 (08:24→21:27)
[2019-06-27] MEDS: Enoxaparin 40 MG/0.4 ML Syringe SUBCUT SCH (08:25)
[2019-06-27] MEDS: Cyanocobalamin (Vitamin B12) 1,000 MCG Tab PO SCH (08:25)
[2019-06-27] MEDS: predniSONE 20 MG Tab PO SCH (08:25)
[2019-06-27] MEDS: Furosemide 20 MG Tab PO SCH (08:25)
[2019-06-27] MEDS: MYCOPHENOLATE 500 MG PO SCH ×2 (08:26→21:28)
[2019-06-27] MEDS: risperiDONE 0.5 MG Tab PO SCH (21:27)
[2019-06-27] MEDS: Simvastatin 40 MG Tab PO SCH (21:27)
[2019-06-27] MEDS: Latanoprost 0.005% Ophth Soln 2.5 ML Bottle EYERT SCH (21:28)
[2019-06-28] MEDS: Acetaminophen 500 MG Tab PO SCH (05:49)
[2019-06-28] MEDS: Omeprazole 20 MG Cap.CR PO SCH (05:49)
[2019-06-28 07:51] VITALS: BP 113/56; PULSE 73
[2019-06-28] MEDS: Enoxaparin 40 MG/0.4 ML Syringe SUBCUT SCH (08:31)
[2019-06-28] MEDS: Calcium Carbonate/Vitamin D3 1250 MG-200 Unit Tab PO SCH (08:31)
[2019-06-28] MEDS: metFORMIN 500 MG Tab PO SCH (08:32)
[2019-06-28] MEDS: predniSONE 20 MG Tab PO SCH (08:32)
[2019-06-28] MEDS: Insulin Lispro 100 Units/ML 3 ML Vial SUBCUT SCH (08:33)
[2019-06-28] MEDS: Furosemide 20 MG Tab PO SCH (08:33)
[2019-06-28] MEDS: Cyanocobalamin (Vitamin B12) 1,000 MCG Tab PO SCH (08:33)
[2019-06-28] MEDS: MYCOPHENOLATE 500 MG PO SCH (08:34)
[2019-06-28] MEDS: Metoprolol Tartrate 50 MG Tab PO SCH (08:36)
--- NOTE | 2019-06-28 10:08 | PCM.DCSUM1 ---
Discharge Summary - Hospital Course Free Text/Narrative:: Patient admitted to swing bed for PT/OT after Right gamma nailing for Right hip fracture. Her stay was uncomplicated. She is being discharged to basic care. Diagnosis: Stroke: No - Discharge Data Discharge Date: 06/28/19 Discharge Disposition: Home, Self-Care 01 Condition: Good - Referral to Home Health Primary Care Physician: Martell Lutz MD - Patient Summary/Data Consults: Consultations 06/20/19 12:00 OT Evaluation and Treatment [CONS] Routine PT Evaluation and Treatment [CONS] Routine - Patient Instructions Diet: Heart Healthy Diet Activity: As Tolerated Wound/Incision Care: Keep Operative Site/Wound Site Clean and Dry Notify Provider of: Fever, Increased Pain, Swelling and Redness - Discharge Plan *PRESCRIPTION DRUG MONITORING PROGRAM REVIEWED*: Not Applicable *COPY OF PRESCRIPTION DRUG MONITORING REPORT IN PATIENT CHATA: Not Applicable Home Medications: Home Meds Alendronate [Fosamax] 70 mg PO WEEKLY 05/04/16 [History] Citracal + D3 1 tab PO BID 05/04/16 [History] Cyanocobalamin (Vitamin B-12) [Vitamin B-12] 1,000 mcg PO DAILY 05/04/16 [ History] Enalapril [Vasotec] 10 mg PO DAILY 05/04/16 [History] Fish Oil/[place]-3 Fatty Acids [Fish Oil 1,000 MG] 1 cap PO DAILY 05/04/16 [ History] Furosemide 20 mg PO DAILY 05/04/16 [History] Gluc Mancia/Chondro Mancia A/Vit C/Mn [Glucosamine 1,500 Complex Cp] 1 cap PO DAILY [History] Omeprazole 20 mg PO ACBREAKFAST 05/04/16 [History] Simvastatin [Zocor] 40 mg PO BEDTIME 05/04/16 [History] metFORMIN HCl [Metformin HCl] 1,000 mg PO BIDMEALS 05/04/16 [History] Latanoprost/Pf [Latanoprost 0.005% Eye Drop] 1 drop EYERT BEDTIME 06/29/18 [ History] Sertraline [Zoloft] 50 mg PO BEDTIME 03/10/19 [History] Acetaminophen [Tylenol Extra Strength] 1,000 mg PO Q8HR 06/20/19 [History] Enoxaparin [Lovenox] 40 mg SQ DAILY 06/20/19 [History] Magnesium Hydroxide [Milk of Magnesia] 30 ml PO DAILY PRN 06/20/19 [History] Metoprolol Tartrate [Lopressor] 50 mg PO BID 06/20/19 [History] Mycophenolate Mofetil [Cellcept] 1,000 mg PO BID 06/20/19 [History] Sennosides [Senna] 8.6 mg PO BID PRN 06/20/19 [History] predniSONE [Prednisone] 20 mg PO DAILY 06/20/19 [History] risperiDONE [Risperdal] 0.5 mg PO BEDTIME 06/20/19 [History] Oxygen Therapy Mode: Room Air Patient Handouts: Fall Prevention in the Home, Adult, [id number], Simple Pelvic Fracture, Adult - Discharge Summary/Plan Comment DC Time >30 min.: Yes - General Info Date of Service: 06/28/19 Functional Status: Reports: Pain Controlled - Review of Systems General: Reports: No Symptoms HEENT: Reports: No Symptoms Pulmonary: Reports: No Symptoms Cardiovascular: Reports: No Symptoms Gastrointestinal: Reports: No Symptoms Genitourinary: Reports: No Symptoms Musculoskeletal: Reports: No Symptoms Skin: Reports: No Symptoms Neurological: Reports: No Symptoms Psychiatric: Reports: No Symptoms - Patient Data Vitals - Most Recent: Last Vital Signs Temp 97 F 06/28/19 07:50 Pulse 73 06/28/19 08:36 Resp 20 06/28/19 07:50 BP 113/56 L 06/28/19 08:36 Pulse Ox 100 06/28/19 07:50 Weight - Most Recent: 128 lb I&O - Last 24 hours: Intake & Output 06/27/19 06/28/19 06/28/19 22:59 06:59 14:59 Intake Total 200 Balance 200 Lab Results - Last 24 hrs: Laboratory Results - last 24 hr 06/27/19 06/27/19 06/27/19 Range/Units 11:33 16:37 21:12 POC Glucose 242 H 267 H 180 H (83-110) mg/dl 06/28/19 Range/Units 07:49 POC Glucose 124 H (83-110) mg/dl Med Orders - Current: Current Medications Acetaminophen (Tylenol Extra Strength) 1,000 mg PO Q8HR [facility] Last Admin: 06/28/19 05:49 Dose: 1,000 mg Calcium Carbonate (Calcium Carbonate/Vitamin D 1250 Mg-200 Unit) 2 tab PO BID [facility] Last Admin: 06/28/19 08:31 Dose: 2 tab Cyanocobalamin (Vitamin B12) 1,000 mcg PO DAILY [facility] Last Admin: 06/28/19 08:33 Dose: 1,000 mcg Dextrose/Water (Dextrose 50% In Water) 50 ml IVPUSH ONETIME PRN PRN Reason: Hypoglycemia Docusate Sodium (Colace) 100 mg PO BID PRN PRN Reason: Constipation Enalapril Maleate (Vasotec) 10 mg PO DAILY [facility] Last Admin: 06/28/19 08:32 Dose: 10 mg Enoxaparin Sodium (Lovenox) 40 mg SUBCUT DAILY [facility] Last Admin: 06/28/19 08:31 Dose: 40 mg Furosemide (Lasix) 20 mg PO DAILY [facility] Last Admin: 06/28/19 08:33 Dose: 20 mg Insulin Human Lispro (Humalog) 0 unit SUBCUT WITHMEALSANDBED [facility]; Protocol Last Admin: 06/28/19 08:33 Dose: Not Given Latanoprost (Xalatan 0.005% Ophth Soln) 0 ml EYERT BEDTIME [facility] Last Admin: 06/27/19 21:28 Dose: 1 drop Magnesium Hydroxide (Milk Of Magnesia) 30 ml PO Q12H PRN PRN Reason: Constipation Metformin HCl (Glucophage) 1,000 mg PO BIDMEALS [facility] Last Admin: 06/28/19 08:32 Dose: 1,000 mg Metoprolol Tartrate (Lopressor) 50 mg PO BID [facility] Last Admin: 06/28/19 08:36 Dose: Not Given Mycophenolate ( Cellcept) 500mg Tab *Own Med* 2 each PO BID [facility] Last Admin: 06/28/19 08:34 Dose: 2 each Omeprazole (Omeprazole) 20 mg PO ACBREAKFAST [facility] Last Admin: 06/28/19 05:49 Dose: 20 mg Ondansetron HCl (Zofran Odt) 4 mg PO Q4H PRN PRN Reason: nausea, able to take PO Polyethylene Glycol (Miralax) 17 gm PO DAILY PRN PRN Reason: Constipation Prednisone (Prednisone) 20 mg PO DAILY@0800 [facility] Last Admin: 06/28/19 08:32 Dose: 20 mg Risperidone (Risperidal) 0.5 mg PO BEDTIME [facility] Last Admin: 06/27/19 21:27 Dose: 0.5 mg Simvastatin (Zocor) 40 mg PO BEDTIME [facility] Last Admin: 06/27/19 21:27 Dose: 40 mg Discontinued Medications Magnesium Hydroxide (Milk Of Magnesia) 30 ml PO DAILY PRN PRN Reason: Constipation Mycophenolate Mofetil (Cellcept) 1,000 mg PO BID [facility] Last Admin: 06/25/19 00:02 Dose: Not Given Non-Formulary Medication (Gluc Mancia/Chondro Mancia A/Vit C/Mn [Glucosamine 1,500 Complex Cp]) 1 cap PO DAILY [facility] Last Admin: 06/21/19 16:57 Dose: Not Given Non-Formulary Medication (Sennosides [Senna]) 8.6 mg PO BID PRN PRN Reason: Constipation - Exam Quality Assessment: Reports: DVT Prophylaxis General: Reports: Alert, Oriented HEENT: Reports: Pupils Equal, Pupils Reactive, EOMI, Mucous Membr. Moist/[place] Neck: Reports: Supple Lungs: Reports: Clear to Auscultation, Normal Respiratory Effort Cardiovascular: Reports: Regular Rate, Regular Rhythm GI/Abdominal Exam: Normal Bowel Sounds, Soft, Non-Tender, No Organomegaly, No Distention, No Abnormal Bruit, No Mass, Pelvis Stable (Female) Exam: Normal External Exam, Normal Speculum Exam, Normal Bimanual Exam Rectal (Female) Exam: Normal Exam, Normal Rectal Tone Back Exam: Reports: Normal Inspection, Full Range of Motion Extremities: Normal Inspection, Normal Range of Motion, Non-Tender, No Pedal Edema, Normal Capillary Refill Skin: Reports: Warm, Dry, Intact Wound/Incisions: Reports: Healing Well Neurological: Reports: No New Focal Deficit Psy/Mental Status: Reports: Alert, Normal Affect, Normal Mood
== END 2019-06-28 10:36 | disposition home or self-care (01) | DRG 561 ==
LOC: UNDOADMIN 11:19 → DL.MS 11:19
PROVIDERS: ADMIT Internal Medicine; ATTEND Hospitalist
DX: Z47.1 Aftercare following joint replacement surgery (principal); I10 Essential (primary) hypertension; E78.5 Hyperlipidemia, unspecified; E11.39 Type 2 diabetes mellitus with other diabetic ophthalmic complication; M81.0 Age-related osteoporosis without current pathological fracture; Z90.49 Acquired absence of other specified parts of digestive tract; Z88.6 Allergy status to analgesic agent; Z88.0 Allergy status to penicillin; Z79.899 Other long term (current) drug therapy; Z79.52 Long term (current) use of systemic steroids; Z79.84 Long term (current) use of oral hypoglycemic drugs; Z86.718 Personal history of other venous thrombosis and embolism
CPT/HCPCS: 36415; 80048; 82962; 85027; 97110-GO; 97110-GP; 97116-GP; 97162-GP; 97165-GO; 97530-GO; 97535-GO; A9270-GY; J1650; J1815

== ENCOUNTER 2020-02-20 21:56 | Observation (INO) | payer MEDICARE, BC ==
[2020-02-20] MEDS ORDERED: Sodium Chloride 0.9% 10 ML Syringe FLUSH PRN (22:12)
[2020-02-20 22:38] LABS: ANION GAP 16.9 mEq/L (7-13); CHLORIDE,CL 101 mmol/L (98-107); SODIUM,NA 139 mmol/L (136-145)
--- NOTE | 2020-02-20 22:56 | CT ---
PROCEDURE INFORMATION: Exam: CT Head Without Contrast Exam date and time: 02/20/2020 10:32 PM Age: 84 years old Clinical indication: Injury or trauma; Fall; Initial encounter; Concussion / head injury; Without loss of consciousness; Additional info: Fall, trauma TECHNIQUE: Imaging protocol: Computed tomography of the head without contrast. Radiation optimization: All CT scans at this facility use at least one of these dose optimization techniques: automated exposure control; mA and/or kV adjustment per patient size (includes targeted exams where dose is matched to clinical indication); or iterative reconstruction. COMPARISON: No relevant prior studies available. FINDINGS: Brain: No mass effect or midline shift. No abnormal densities are seen intracranially; no sign of acute intracranial hemorrhage or cerebral edema. Ventricles: Ventricles and cortical sulci are normal in caliber. Bones/joints: Skull base and overlying calvarium are intact. No lytic or osteosclerotic lesions. Sinuses: Visualized sinuses are unremarkable. No fluid levels. Mastoid air cells: Visualized mastoid air cells are well aerated. Soft tissues: Unremarkable. IMPRESSION: No sign of acute intracranial injury or skull fracture.
--- NOTE | 2020-02-20 22:58 | EDM.PDOC ---
ED HPI GENERAL MEDICAL PROBLEM - General Chief Complaint: Trauma Stated Complaint: FELL Time Seen by Provider: 02/20/20 23:50 Source of Information: Reports: Patient, Family, RN, RN Notes Reviewed History Limitations: Reports: No Limitations - History of Present Illness INITIAL COMMENTS - FREE TEXT/NARRATIVE: Presents to ER per POV with daughter in a wheelchair. Patient states she resides at the [facility]. Patient states this evening she tripped over the leg rest of her recliner falling on her abdomen and hitting her face. Patient has swelling and ecchymosis to the nose, bottom lip, chin. Patient has some increased pain to the left knee, increased swelling , and ecchymosis beginning. Patient states she did have the left knee replaced , has had several surgeries on that knee. Patient states she is unable to bend it to 90 degrees normally, but feels the range of motion is decreased more so after this fall. Patient states she did not lose consciousness. Skin tear to the right forearm noted. Patient denies any neck or back pain, numbness or tingling. Patient was able to stand from the wheelchair and transfer to the bed with one assist. GCS upon arrival: 15 GCS at 1 hour: 15 GCS upon mission to the medical floor/discharge from the emergency department: 15 Onset: Today, Sudden Location: Reports: Head, Face, Lower Extremity, Left Quality: Reports: Throbbing Severity: Mild Improves with: Reports: None - Related Data Allergies Allergy/AdvReac Type Severity Reaction Status Date / Time aspirin Allergy Severe Anaphylactic Verified 02/21/20 00:19 Shock lincomycin [From Lincocin] Allergy Severe Anaphylactic Verified 02/21/20 00:19 Shock Penicillins Allergy Severe Anaphylactic Verified 02/21/20 00:19 Shock levofloxacin [From Levaquin] Allergy Intermediate Redness Verified 02/21/20 00: 19 salicylates Allergy Unknown unknown Verified 02/21/20 00:19 calcium containing compounds Allergy Unknown unknown Uncoded 02/21/20 00:19 Home Meds: Home Meds Acetaminophen [Tylenol Arthritis Pain] 650 mg PO Q6H PRN 02/20/20 [History] Alendronate Sodium [Fosamax] 70 mg PO WEEKLY 02/20/20 [History] Calcium Citrate/Vitamin D3 [Calcium Citrate - Vit D Caplet] 1 each PO BID [History] Carboxymethylcellulose Sodium [Artificial Tears] 1 drop EYEBOTH DAILY PRN [History] Cyanocobalamin (Vitamin B-12) [Vitamin B-12] 1,000 mcg PO DAILY 02/20/20 [ History] Docusate Sodium/Sennosides [Senokot-S] 1 each PO BID PRN 02/20/20 [History] Enalapril [Vasotec] 10 mg PO DAILY 02/20/20 [History] Fish Oil/[place]-3 Fatty Acids [Fish Oil 1,000 MG] 1 cap PO DAILY 02/20/20 [ History] Furosemide [Lasix] 20 mg PO DAILY 02/20/20 [History] Glimepiride 2 mg PO DAILY 02/20/20 [History] Gluc Mancia/Chondro Mancia A/Vit C/Mn [Glucosamine-Chondroitin Cap] 1 each PO DAILY 11/09 [History] Latanoprost/Pf [Latanoprost 0.005% Eye Drop] 1 drop EYERT BEDTIME 02/20/20 [ History] Magnesium Hydroxide [Milk of Magnesia] 30 ml PO DAILY PRN 02/20/20 [History] Meloxicam 15 mg PO DAILY 02/20/20 [History] Metoprolol Tartrate 50 mg PO BID 02/20/20 [History] Omeprazole 20 mg PO ACBREAKFAST 02/20/20 [History] Simvastatin 40 mg PO BEDTIME 02/20/20 [History] metFORMIN HCl [Fortamet] 1,000 mg PO BIDMEALS 02/20/20 [History] mycophenolate mofetiL [Mycophenolate Mofetil] 1,000 mg PO BID 02/20/20 [History] predniSONE [Prednisone] 2.5 mg PO DAILY 02/20/20 [History] risperiDONE [Risperidone] 0.5 mg PO BEDTIME 02/20/20 [History] Past Medical History HEENT History: Reports: Cataract Cardiovascular History: Reports: Blood Clots/VTE/DVT, High Cholesterol, Hypertension, Other (See Below) Other Cardiovascular History: "Broken Heart Syndrome" Respiratory History: Reports: None, COPD Gastrointestinal History: Reports: Diverticulosis, GERD Genitourinary History: Reports: Other (See Below) Other Genitourinary History: hyponatremial [employer] History: Reports: Musculoskeletal History: Reports: Fracture, Other (See Below) Other Musculoskeletal History: pelvis fracture, L2 fracture, left wrist fracture Neurological History: Reports: None Psychiatric History: Reports: Anxiety, Depression Endocrine/Metabolic History: Reports: Diabetes, Type II, Other (See Below) Other Endocrine/Metabolic History: SIADH Hematologic History: Reports: B12 Deficiency Oncologic (Cancer) History: Reports: None Dermatologic History: Reports: Cellulitis - Infectious Disease History Infectious Disease History: Reports: Chicken Pox - Past Surgical History HEENT Surgical History: Reports: None, Cataract Surgery, Other (See Below) Other HEENT Surgeries/Procedures: prosthetic left eye GI Surgical History: Reports: Cholecystectomy, Colonoscopy, Other (See Below) Female Surgical History: Reports: Breast Biopsy Musculoskeletal Surgical History: Reports: Hip Replacement, Knee Replacement, Other (See Below) Social & Family History - Family History Family Medical History: Unobtainable Cardiac: Reports: IN Oncologic: Reports: Colon, Lung - Caffeine Use Caffeine Use: Reports: Coffee - Living Situation & Occupation Occupation: Retired Review of Systems - Review of Systems Review Of Systems: Comprehensive ROS is negative, except as noted in HPI. ED EXAM, GENERAL - Physical Exam Exam: See Below Exam Limited By: No Limitations General Appearance: Alert, WD/WN, No Apparent Distress Eye Exam: Left Eye: Other (glasses clouded to the left lens, left eye dose not open spontaneously) Ears: Normal External Exam, Hearing Grossly Normal Nose: No Blood, Nasal Tenderness, Nasal Swelling, Other (ecchymosis at the bridge of the nose, possibly from nose pads of the glasses ). No: Nasal Deformity Throat/Mouth: Normal Teeth, Normal Voice, No Airway Compromise, Other (Lower lip swollen, ecchymotic, minimal bleeding to the inside of the lip, no laceration) Head: Facial Swelling, Facial Tenderness, Other (chin swelling and ecchymosis ) Neck: Normal Inspection, Supple, Non-Tender, Full Range of Motion Respiratory/Chest: No Respiratory Distress, Lungs Clear, Normal Breath Sounds, No Accessory Muscle Use, Chest Non-Tender Cardiovascular: Normal Peripheral Pulses, Regular Rate, Rhythm, No Edema, No Gallop, No JVD, No Murmur, No Rub Peripheral Pulses: 2+: Radial (L), Radial (R), Dorsalis Pedis (L), Dorsalis Pedis (R) GI/Abdominal: Normal Bowel Sounds, Soft, Non-Tender (Female) Exam: Deferred Rectal (Female) Exam: Deferred Back Exam: Normal Inspection, Full Range of Motion, NT Extremities: Joint Swelling (left knee), Leg Pain (left knee), Limited Range of Motion (left knee) Neurological: Alert, Oriented, CN II-XII Intact, Normal Cognition, No Motor/ Sensory Deficits Psychiatric: Normal Affect, Normal Mood Skin Exam: Warm, Dry, Intact, Normal Color, No Rash, Ecchymosis (node, lower lip , chin, left knee) Lymphatic: No Adenopathy Course - Vital Signs Last Recorded V/S: Last Vital Signs Temp 97.0 F 02/21/20 00:32 Pulse 82 02/21/20 00:32 Resp 16 02/21/20 00:32 BP 141/93 H 02/21/20 00:32 Pulse Ox 96 02/21/20 00:32 - Orders/Labs/Meds Orders: Active Orders 24 hr Category Date Time Status Peripheral IV Care [RC] . DIRECTED Care 02/20/20 22:13 Active UA RFX GLEN AND CULT IF INDIC [URIN] Stat Lab 02/20/20 23:37 Ordered Sodium Chloride 0.9% [Saline Flush] Med 02/20/20 22:12 Active 10 ml FLUSH ASDIRECTED PRN Peripheral IV Insertion Adult [OM.PC] Stat Oth 02/20/20 22:12 Ordered Medication Orders Acetaminophen (Tylenol) 650 mg PO Q4H PRN PRN Reason: Pain (Mild 1-3)/fever Hydrocodone Bitart/Acetaminophen ([place] 325-10 Mg) 1 tab PO Q4H PRN PRN Reason: Pain (moderate 4-6) Cyanocobalamin (Vitamin B12) 1,000 mcg PO DAILY BELLA Docusate Sodium (Colace) 100 mg PO BID PRN PRN Reason: Constipation Enalapril Maleate (Vasotec) 10 mg PO DAILY BELLA Furosemide (Lasix) 20 mg PO DAILY BELLA Glimepiride (Amaryl) 2 mg PO DAILY [facility] Heparin Sodium (Porcine) (Heparin Sodium) 5,000 units SUBCUT Q8HR BELLA Last Admin: 02/21/20 05:48 Dose: 5,000 units Insulin Human Lispro (Humalog) 0 unit SUBCUT ACBED BELLA; Protocol Latanoprost (Xalatan 0.005% Ophth Soln) 0 ml EYERT BEDTIME BELLA Metoprolol Tartrate (Lopressor) 50 mg PO BID BELLA Morphine Sulfate (Morphine) 1 mg IVPUSH Q2H PRN PRN Reason: Pain (severe 7-10) Mycophenolate Mofetil (Cellcept) 1,000 mg PO BID [facility] Omeprazole (Omeprazole) 20 mg PO ACBREAKFAST BELLA Last Admin: 02/21/20 05:48 Dose: 20 mg Ondansetron HCl (Zofran Odt) 4 mg PO Q6H PRN PRN Reason: nausea, able to take PO Ondansetron HCl (Zofran) 4 mg IVPUSH Q6H PRN PRN Reason: Nausea/Vomiting Prednisone (Prednisone) 2.5 mg PO DAILY [facility] Risperidone (Risperidal) 0.5 mg PO BEDTIME BELLA Simvastatin (Zocor) 40 mg PO BEDTIME [facility] Sodium Chloride (Saline Flush) 10 ml FLUSH ASDIRECTED PRN PRN Reason: Keep Vein Open Temazepam (Restoril) 15 mg PO BEDTIME PRN PRN Reason: Sleep Labs: Laboratory Tests 02/20/20 02/20/20 02/20/20 Range/Units 22:10 22:10 22:10 WBC 10.0 (5.0-10.0) 10^3/uL RBC 4.45 (4.2-5.4) 10^6/uL Hgb 12.1 D (12.0-16.0) g/dL Hct 36.4 L (37.0-47.0) % MCV 81.8 D (80-100) fL MCH 27.2 (27.0-34.0) pg MCHC 33.2 (33.0-35.0) g/dL Plt Count 301 (150-450) 10^3/uL Neut % (Auto) 78.8 H (42.2-75.2) % Lymph % (Auto) 13.3 L (20.5-50.1) % [place] % (Auto) 5.3 (2-8) % Eos % (Auto) 2.2 (1.0-3.0) % Baso % (Auto) 0.4 (0.0-1.0) % Add Manual Diff Yes Neutrophils % (Manual) 73 (42-75) % Band Neutrophils % 6 % Lymphocytes % (Manual) 12 L (20-50) % Monocytes % (Manual) 6 (2-8) % Eosinophils % (Manual) 3 (1-3) % PT 9.6 (9.0-12.0) SEC INR 1.0 (0.9-1.2) Sodium 139 (136-145) mmol/L Potassium 3.9 (3.5-5.1) mmol/L Chloride 101 (98-107) mmol/L Carbon Dioxide 25 (21-32) mmol/L Anion Gap 16.9 H (7-13) mEq/L BUN 15 (7-18) mg/dL Creatinine 1.02 (0.55-1.02) mg/dL Est Cr Clr Drug Dosing TNP Estimated GFR (MDRD) 51 BUN/Creatinine Ratio 14.7 (No establ ref range) Glucose 116 H (74-99) mg/dL Calcium 9.2 (8.5-10.1) mg/dL Total Bilirubin 0.4 (0.2-1.0) mg/dL AST 14 L (15-37) U/L ALT 22 (14-59) U/L Alkaline Phosphatase 68 (46-116) U/L Total Protein 6.4 (6.4-8.2) g/dL Albumin 3.6 (3.4-5.0) g/dL Globulin 2.8 Albumin/Globulin Ratio 1.3 Meds: Medications Generic Name Dose Route Start Last Admin Trade Name Freq PRN Reason Stop Dose Admin Acetaminophen 650 mg 02/21/20 00:32 Tylenol PO Q4H PRN Pain (Mild 1-3)/fever Hydrocodone Bitart/Acetaminophen 1 tab 02/21/20 00:32 [place] 325-10 Mg PO Q4H PRN Pain (moderate 4-6) Cyanocobalamin 1,000 mcg 02/21/20 09:00 Vitamin B12 PO DAILY BELLA Docusate Sodium 100 mg 02/21/20 00:32 Colace PO BID PRN Constipation Enalapril Maleate 10 mg 02/21/20 09:00 Vasotec PO DAILY BELLA Furosemide 20 mg 02/21/20 09:00 Lasix PO DAILY BELLA Glimepiride 2 mg 02/21/20 09:00 Amaryl PO DAILY BELLA Heparin Sodium (Porcine) 5,000 units 02/21/20 06:00 02/21/20 05:48 Heparin Sodium SUBCUT 5,000 units Q8HR BELLA Administration Insulin Human Lispro 0 unit 02/21/20 07:00 Humalog SUBCUT ACBED BELLA Protocol Latanoprost 0 ml 02/21/20 21:00 Xalatan 0.005% Ophth Soln EYERT BEDTIME BELLA Metoprolol Tartrate 50 mg 02/21/20 09:00 Lopressor PO BID BELLA Morphine Sulfate 1 mg 02/21/20 00:32 Morphine IVPUSH Q2H PRN Pain (severe 7-10) Mycophenolate Mofetil 1,000 mg 02/21/20 09:00 Cellcept PO BID BELLA Omeprazole 20 mg 02/21/20 06:00 02/21/20 05:48 Omeprazole PO 20 mg ACBREAKFAST BELLA Administration Ondansetron HCl 4 mg 02/21/20 00:32 Zofran Odt PO Q6H PRN nausea, able to take PO Ondansetron HCl 4 mg 02/21/20 00:32 Zofran IVPUSH Q6H PRN Nausea/Vomiting Prednisone 2.5 mg 02/21/20 09:00 Prednisone PO DAILY [facility] Risperidone 0.5 mg 02/21/20 21:00 Risperidal PO BEDTIME BELLA Simvastatin 40 mg 02/21/20 21:00 Zocor PO BEDTIME BELLA Sodium Chloride 10 ml 02/20/20 22:12 Saline Flush FLUSH ASDIRECTED PRN Keep Vein Open Temazepam 15 mg 02/21/20 00:32 Restoril PO BEDTIME PRN Sleep Discontinued Medications Generic Name Dose Route Start Last Admin Trade Name Freq PRN Reason Stop Dose Admin Sodium Chloride 10 ml 02/21/20 00:32 Saline Flush FLUSH ASDIRECTED PRN Keep Vein Open - Radiology Interpretation Free Text/Narrative:: Head CT wo contrast: FINDINGS: Brain: No mass effect or midline shift. No abnormal densities are seen intracranially; no sign of acute intracranial hemorrhage or cerebral edema. Ventricles: Ventricles and cortical sulci are normal in caliber. Bones/joints: Skull base and overlying calvarium are intact. No lytic or osteosclerotic lesions. Sinuses: Visualized sinuses are unremarkable. No fluid levels. Mastoid air cells: Visualized mastoid air cells are well aerated. Soft tissues: Unremarkable. IMPRESSION: No sign of acute intracranial injury or skull fracture. Thank you for allowing us to participate in the care of your patient. Dictated and Authenticated by: Lloyd Simmons MD 02/20/2020 10:56 PM Central Time ([place] & [place]) C Spine CT wo contrast: FINDINGS: Vertebrae: There are no perched or locked facets and the craniocervical relationship is normal. No fracture. Discs/Spinal canal/Neural foramina: There are mild degenerative changes within the spine. Multilevel bilateral foraminal stenosis. 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 Soft tissues: Unremarkable. Lungs: Lung apices are normal. IMPRESSION: No sign of acute cervical spine injury. Thank you for allowing us to participate in the care of your patient. Dictated and Authenticated by: Lloyd Simmons MD 02/20/2020 10:58 PM Central Time ([place] & [place]) Max/Sinus/Face CT wo contrast: FINDINGS: Limitations: Portions of orbital roof, skull base, and zygomatic arches are excluded from the field of view. Orbits: Orbital floors, roofs, lateral boss and the lamina papyracea are intact as imaged. There is no retro-orbital emphysema or stranding/hemorrhage of intraconal fat. Globes are normal in contour and density. Bones/joints: Skull base, maxillae, zygomatic arches, pterygoid processes, hard palate, nasal bones and mandible are intact as imaged. Sinuses: Fluid layering in the left maxillary sinuses presumably blood. Soft tissues: Unremarkable. IMPRESSION: No acute maxillofacial fracture. Thank you for allowing us to participate in the care of your patient. Dictated and Authenticated by: Lloyd Simmons MD 02/20/2020 11:00 PM Central Time ([place] & [place]) Left knee xray: FINDINGS: Bones/joints: Three-part knee arthroplasty. There are no suspicious lytic or osteosclerotic lesions. No fracture. Soft tissues: Prepatellar soft tissue swelling. IMPRESSION: 1. No fracture. 2. Prepatellar soft tissue swelling. Thank you for allowing us to participate in the care of your patient. Dictated and Authenticated by: Lloyd Simmons MD 02/20/2020 11:01 PM Central Time ([place] & [place]) See rad report - Re-Assessments/Exams Free Text/Narrative Re-Assessment/Exam: 02/21/20 06:32 Patient up from bed to the bathroom with 1-2 assist. Needs 2 assist to get up from the toilet. Patient states she feels dizzy when up, unsteady and weak since the fall. Patient lives in a [facility] and needs to be independent in all cares. Patient case discussed with Dr. Hardy who agreed to accept the patient for observation admission. Departure - Departure Time of Disposition: 00:05 Disposition: Refer to Observation Condition: Fair Clinical Impression: Pain and swelling of left knee Fall, accidental Qualifiers: Encounter type: initial encounter Qualified Code(s): W19.XXXA - Unspecified fall, initial encounter Contusion of face Qualifiers: Encounter type: initial encounter Qualified Code(s): S00.83XA - Contusion of other part of head, initial encounter - Discharge Information *PRESCRIPTION DRUG MONITORING PROGRAM REVIEWED*: No *COPY OF PRESCRIPTION DRUG MONITORING REPORT IN PATIENT CHATA: No Sepsis Event Note - Focused Exam Date Exam was Performed: 02/21/20 Time Exam was Performed: 06:21 - My Orders Last 24 Hours: My Active Orders 02/20/20 22:12 Sodium Chloride 0.9% [Saline Flush] 10 ml FLUSH ASDIRECTED PRN Peripheral IV Insertion Adult [OM.PC] Stat 02/20/20 22:13 Peripheral IV Care [RC] . DIRECTED 02/20/20 23:37 UA RFX GLEN AND CULT IF INDIC [URIN] Stat - Assessment/Plan Last 24 Hours: My Active Orders 02/20/20 22:12 Sodium Chloride 0.9% [Saline Flush] 10 ml FLUSH ASDIRECTED PRN Peripheral IV Insertion Adult [OM.PC] Stat 02/20/20 22:13 Peripheral IV Care [RC] . DIRECTED 02/20/20 23:37 UA RFX GLEN AND CULT IF INDIC [URIN] Stat
--- NOTE | 2020-02-20 22:58 | CT ---
PROCEDURE INFORMATION: Exam: CT Cervical Spine Without Contrast Exam date and time: 02/20/2020 10:32 PM Age: 84 years old Clinical indication: Injury or trauma; Fall; Initial encounter; Concussion /head injury; Additional info: Fall, trauma TECHNIQUE: Imaging protocol: Computed tomography images of the cervical spine without contrast. Radiation optimization: All CT scans at this facility use at least one of these dose optimization techniques: automated exposure control; mA and/or kV adjustment per patient size (includes targeted exams where dose is matched to clinical indication); or iterative reconstruction. COMPARISON: No relevant prior studies available. FINDINGS: Vertebrae: There are no perched or locked facets and the craniocervical relationship is normal. No fracture. Discs/Spinal canal/Neural foramina: There are mild degenerative changes within the spine. Multilevel bilateral foraminal stenosis. 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 Soft tissues: Unremarkable. Lungs: Lung apices are normal. IMPRESSION: No sign of acute cervical spine injury.
--- NOTE | 2020-02-20 23:01 | CT ---
PROCEDURE INFORMATION: Exam: CT Maxillofacial Without Contrast Exam date and time: 02/20/2020 10:32 PM Age: 84 years old Clinical indication: Injury or trauma; Fall; Initial encounter; Concussion /head injury; Without loss of consciousness; Additional info: Fall, trauma TECHNIQUE: Imaging protocol: Computed tomography images of the face without contrast. Radiation optimization: All CT scans at this facility use at least one of these dose optimization techniques: automated exposure control; mA and/or kV adjustment per patient size (includes targeted exams where dose is matched to clinical indication); or iterative reconstruction. COMPARISON: No relevant prior studies available. FINDINGS: Limitations: Portions of orbital roof, skull base, and zygomatic arches are excluded from the field of view. Orbits: Orbital floors, roofs, lateral boss and the lamina papyracea are intact as imaged. There is no retro-orbital emphysema or stranding/hemorrhage of intraconal fat. Globes are normal in contour and density. Bones/joints: Skull base, maxillae, zygomatic arches, pterygoid processes, hard palate, nasal bones and mandible are intact as imaged. Sinuses: Fluid layering in the left maxillary sinuses presumably blood. Soft tissues: Unremarkable. IMPRESSION: No acute maxillofacial fracture.
--- NOTE | 2020-02-20 23:02 | CR ---
PROCEDURE INFORMATION: Exam: XR Left Knee Exam date and time: 02/20/2020 10:38 PM Age: 84 years old Clinical indication: Injury or trauma; Fall; Initial encounter; Blunt trauma; Left; Prior surgery; Surgery date: 6+ months; Surgery type: Knee replacement; Additional info: Fall, trauma TECHNIQUE: Imaging protocol: XR Left knee. Views: 3 views. COMPARISON: No relevant prior studies available. FINDINGS: Bones/joints: Three-part knee arthroplasty. There are no suspicious lytic or osteosclerotic lesions. No fracture. Soft tissues: Prepatellar soft tissue swelling. IMPRESSION: 1. No fracture. 2. Prepatellar soft tissue swelling.
[2020-02-21] MEDS ORDERED: Ondansetron 4 MG/2 ML SDV IVPUSH PRN (00:32)
[2020-02-21] MEDS ORDERED: Sodium Chloride 0.9% 10 ML Syringe FLUSH PRN (00:32)
[2020-02-21] MEDS ORDERED: Temazepam 15 MG Cap PO PRN (00:32)
[2020-02-21] MEDS ORDERED: Morphine 2 MG/ML Syringe IVPUSH PRN (00:32)
[2020-02-21] MEDS ORDERED: Docusate Sodium 100 MG Cap PO PRN (00:32)
[2020-02-21] MEDS ORDERED: Ondansetron 4 MG Tab.DIS PO PRN (00:32)
--- NOTE | 2020-02-21 00:49 | PCM.HP ---
H&P History of Present Illness - General Date of Service: 02/21/20 Admit Problem/Dx: Admission Diagnosis/Problem Admission Diagnosis/Problem Weakness - History of Present Illness Initial Comments - Free Text/Narative: 84 years old lady with a history of diabetes, hypertension, dyslipidemia, bullous pemphigoid on immunosuppressants, 5.1 x 6 cm thoracic aortic aneurysm The patient lives in basic care facility. The patient fell. This was due to an accident, fell over a chair. Hit all extremities and face as well. In the emergency room multiple bruises and swelling was noted but no bony fracture on CT face, head, neck, x-ray of left knee. The patient has moderate pain in all extremities, face, this is since the fall. - Related Data Allergies/Adverse Reactions: Allergies Allergy/AdvReac Type Severity Reaction Status Date / Time aspirin Allergy Severe Anaphylactic Verified 02/21/20 00:19 Shock lincomycin [From Lincocin] Allergy Severe Anaphylactic Verified 02/21/20 00:19 Shock Penicillins Allergy Severe Anaphylactic Verified 02/21/20 00:19 Shock levofloxacin [From Levaquin] Allergy Intermediate Redness Verified 02/21/20 00: 19 salicylates Allergy Unknown unknown Verified 02/21/20 00:19 calcium containing compounds Allergy Unknown unknown Uncoded 02/21/20 00:19 Home Medications: Home Meds Acetaminophen [Tylenol Arthritis Pain] 650 mg PO Q6H PRN 02/20/20 [History] Alendronate Sodium [Fosamax] 70 mg PO WEEKLY 02/20/20 [History] Calcium Citrate/Vitamin D3 [Calcium Citrate - Vit D Caplet] 1 each PO BID [History] Carboxymethylcellulose Sodium [Artificial Tears] 1 drop EYEBOTH DAILY PRN [History] Cyanocobalamin (Vitamin B-12) [Vitamin B-12] 1,000 mcg PO DAILY 02/20/20 [ History] Docusate Sodium/Sennosides [Senokot-S] 1 each PO BID PRN 02/20/20 [History] Enalapril [Vasotec] 10 mg PO DAILY 02/20/20 [History] Fish Oil/[place]-3 Fatty Acids [Fish Oil 1,000 MG] 1 cap PO DAILY 02/20/20 [ History] Furosemide [Lasix] 20 mg PO DAILY 02/20/20 [History] Glimepiride 2 mg PO DAILY 02/20/20 [History] Gluc Mancia/Chondro Mancia A/Vit C/Mn [Glucosamine-Chondroitin Cap] 1 each PO DAILY 11/09 [History] Latanoprost/Pf [Latanoprost 0.005% Eye Drop] 1 drop EYERT BEDTIME 02/20/20 [ History] Magnesium Hydroxide [Milk of Magnesia] 30 ml PO DAILY PRN 02/20/20 [History] Meloxicam 15 mg PO DAILY 02/20/20 [History] Metoprolol Tartrate 50 mg PO BID 02/20/20 [History] Omeprazole 20 mg PO ACBREAKFAST 02/20/20 [History] Simvastatin 40 mg PO BEDTIME 02/20/20 [History] metFORMIN HCl [Fortamet] 1,000 mg PO BIDMEALS 02/20/20 [History] mycophenolate mofetiL [Mycophenolate Mofetil] 1,000 mg PO BID 02/20/20 [History] predniSONE [Prednisone] 2.5 mg PO DAILY 02/20/20 [History] risperiDONE [Risperidone] 0.5 mg PO BEDTIME 02/20/20 [History] Past Medical History HEENT History: Reports: Cataract Cardiovascular History: Reports: Blood Clots/VTE/DVT, High Cholesterol, Hypertension, Other (See Below) Other Cardiovascular History: "Broken Heart Syndrome" Respiratory History: Reports: None, COPD Gastrointestinal History: Reports: Diverticulosis, GERD Genitourinary History: Reports: Other (See Below) Other Genitourinary History: hyponatremial [employer] History: Reports: Musculoskeletal History: Reports: Fracture, Other (See Below) Other Musculoskeletal History: pelvis fracture, L2 fracture, left wrist fracture Neurological History: Reports: None Psychiatric History: Reports: Anxiety, Depression Endocrine/Metabolic History: Reports: Diabetes, Type II, Other (See Below) Other Endocrine/Metabolic History: SIADH Hematologic History: Reports: B12 Deficiency Oncologic (Cancer) History: Reports: None Dermatologic History: Reports: Cellulitis - Infectious Disease History Infectious Disease History: Reports: Chicken Pox - Past Surgical History HEENT Surgical History: Reports: None, Cataract Surgery, Other (See Below) Other HEENT Surgeries/Procedures: prosthetic left eye GI Surgical History: Reports: Cholecystectomy, Colonoscopy, Other (See Below) Female Surgical History: Reports: Breast Biopsy Musculoskeletal Surgical History: Reports: Hip Replacement, Knee Replacement, Other (See Below) Social & Family History - Family History Family Medical History: Unobtainable Cardiac: Reports: CT Oncologic: Reports: Colon, Lung - Tobacco Use Smoking Status *Q: Never Smoker Second Hand Smoke Exposure: No - Caffeine Use Caffeine Use: Reports: None - Recreational Drug Use Recreational Drug Use: No - Living Situation & Occupation Occupation: Retired H&P Review of Systems - Review of Systems: Review Of Systems: See Below General: Denies: Fever, Chills Cardiovascular: Denies: Chest Pain, Edema Gastrointestinal: Denies: Abdominal Pain Genitourinary: Denies: Dysuria Skin: Reports: Bruising (Of the face, extremities, left knee swelling) Psychiatric: Reports: Depression. Denies: Confusion Neurological: Reports: Difficulty Walking (With left knee pain) Exam - Exam Exam: See Below - Vital Signs Weight: 134 lb 1.6 oz - Exam General: Alert, Oriented Neck: Supple Lungs: Clear to Auscultation, Normal Respiratory Effort Cardiovascular: Regular Rate, Regular Rhythm GI/Abdominal Exam: Normal Bowel Sounds, Soft, Non-Tender Extremities: No Pedal Edema Skin: Warm, Other (Bruises of the face, around mouth, bruises of upper extremities, left knee swelling and bruise) - Patient Data Lab Results Last 24 hrs: Laboratory Results - last 24 hr 02/20/20 02/20/20 02/20/20 Range/Units 22:10 22:10 22:10 WBC 10.0 (5.0-10.0) 10^3/uL RBC 4.45 (4.2-5.4) 10^6/uL Hgb 12.1 D (12.0-16.0) g/dL Hct 36.4 L (37.0-47.0) % MCV 81.8 D (80-100) fL MCH 27.2 (27.0-34.0) pg MCHC 33.2 (33.0-35.0) g/dL Plt Count 301 (150-450) 10^3/uL Neut % (Auto) 78.8 H (42.2-75.2) % Lymph % (Auto) 13.3 L (20.5-50.1) % [place] % (Auto) 5.3 (2-8) % Eos % (Auto) 2.2 (1.0-3.0) % Baso % (Auto) 0.4 (0.0-1.0) % Add Manual Diff Yes Neutrophils % (Manual) 73 (42-75) % Band Neutrophils % 6 % Lymphocytes % (Manual) 12 L (20-50) % Monocytes % (Manual) 6 (2-8) % Eosinophils % (Manual) 3 (1-3) % PT 9.6 (9.0-12.0) SEC INR 1.0 (0.9-1.2) Sodium 139 (136-145) mmol/L Potassium 3.9 (3.5-5.1) mmol/L Chloride 101 (98-107) mmol/L Carbon Dioxide 25 (21-32) mmol/L Anion Gap 16.9 H (7-13) mEq/L BUN 15 (7-18) mg/dL Creatinine 1.02 (0.55-1.02) mg/dL Est Cr Clr Drug Dosing TNP Estimated GFR (MDRD) 51 BUN/Creatinine Ratio 14.7 (No establ ref range) Glucose 116 H (74-99) mg/dL Calcium 9.2 (8.5-10.1) mg/dL Total Bilirubin 0.4 (0.2-1.0) mg/dL AST 14 L (15-37) U/L ALT 22 (14-59) U/L Alkaline Phosphatase 68 (46-116) U/L Total Protein 6.4 (6.4-8.2) g/dL Albumin 3.6 (3.4-5.0) g/dL Globulin 2.8 Albumin/Globulin Ratio 1.3 Result Diagrams: 02/20/20 22:10 02/20/20 22:10 - Problem List (1) Fall, accidental SNOMED Code(s): 028272715 ICD Code: W19.XXXA - UNSPECIFIED FALL, INITIAL ENCOUNTER Status: Acute Current Visit: Yes (2) Bullous pemphigoid SNOMED Code(s): 66652371 ICD Code: L12.0 - BULLOUS PEMPHIGOID Status: Acute Current Visit: Yes (3) Hypertension SNOMED Code(s): 42656317 ICD Code: I10 - ESSENTIAL (PRIMARY) HYPERTENSION Status: Acute Current Visit: Yes (4) Dyslipidemia SNOMED Code(s): 053717568 ICD Code: E78.5 - HYPERLIPIDEMIA, UNSPECIFIED Status: Acute Current Visit : Yes (5) Depression SNOMED Code(s): 83201707 ICD Code: F32.9 - MAJOR DEPRESSIVE DISORDER, SINGLE EPISODE, UNSPECIFIED Status: Acute Current Visit: Yes Problem List Initiated/Reviewed/Updated: Yes Orders Last 24hrs: Active Orders 24 hr Category Date Time Status Admission Diagnosis [ADT] Stat ADT 02/20/20 23:50 Ordered Admission Status [Patient Status] [ADT] Routine ADT 02/20/20 23:50 Active Antiembolic Devices [RC] PER UNIT ROUTINE Care 02/21/20 00:33 Ordered EKG Documentation Completion [RC] STAT Care 02/20/20 22:20 Active Glucose [Blood Glucose Check, Bedside] [RC] QIDACANDBED Care 02/21/20 00:35 Ordered Oxygen Therapy [RC] PRN Care 02/21/20 00:32 Ordered Peripheral IV Care [RC] . DIRECTED Care 02/20/20 22:13 Active Up With Assistance [RC] ASDIRECTED Care 02/21/20 00:32 Ordered VTE/DVT Education [RC] PER UNIT ROUTINE Care 02/21/20 00:32 Ordered Vital Signs [RC] Q4H Care 02/21/20 00:32 Ordered OT Evaluation and Treatment [CONS] Routine Cons 02/21/20 00:35 Ordered PT Evaluation and Treatment [CONS] Routine Cons 02/21/20 00:35 Ordered Consistent Carbohydrate Diet [DIET] Diet 02/21/20 Breakfast Ordered BASIC METABOLIC PANEL,BMP [CHEM] AM Lab 02/21/20 05:11 Ordered CBC W/O DIFF,HEMOGRAM [HEME] AM Lab 02/21/20 05:11 Ordered UA RFX GLEN AND CULT IF INDIC [URIN] Stat Lab 02/20/20 23:37 Ordered Acetaminophen [Tylenol] Med 02/21/20 00:32 Ordered 650 mg PO Q4H PRN Acetaminophen/HYDROcodone [[place] 325-10 MG] Med 02/21/20 00:32 Ordered 1 tab PO Q4H PRN Cyanocobalamin (Vitamin B12) [Vitamin B12] Med 02/21/20 09:00 Ordered 1,000 mcg PO DAILY Docusate Sodium [Colace] Med 02/21/20 00:32 Ordered 100 mg PO BID PRN Enalapril [Vasotec] Med 02/21/20 09:00 Ordered 10 mg PO DAILY Furosemide [Lasix] Med 02/21/20 09:00 Ordered 20 mg PO DAILY Glimepiride [Amaryl] Med 02/21/20 09:00 Ordered 2 mg PO DAILY Heparin Sodium Med 02/21/20 06:00 Ordered 5,000 units SUBCUT Q8HR Insulin Lispro [HumaLOG] Med 02/21/20 07:00 Ordered See Protocol SUBCUT ACBED Latanoprost/Pf [Latanoprost 0.005% Eye Drop] Med 02/21/20 21:00 Ordered 1 drop EYERT BEDTIME Metoprolol Tartrate [Lopressor] Med 02/21/20 09:00 Ordered 50 mg PO BID Morphine Med 02/21/20 00:32 Ordered 1 mg IVPUSH Q2H PRN Omeprazole Med 02/21/20 06:00 Ordered 20 mg PO ACBREAKFAST Ondansetron [Zofran ODT] Med 02/21/20 00:32 Ordered 4 mg PO Q6H PRN Ondansetron [Zofran] Med 02/21/20 00:32 Ordered 4 mg IVPUSH Q6H PRN Simvastatin [Zocor] Med 02/21/20 21:00 Ordered 40 mg PO BEDTIME Sodium Chloride 0.9% [Saline Flush] Med 02/20/20 22:12 Active 10 ml FLUSH ASDIRECTED PRN Sodium Chloride 0.9% [Saline Flush] Med 02/21/20 00:32 Ordered 10 ml FLUSH ASDIRECTED PRN Temazepam [Restoril] Med 02/21/20 00:32 Ordered 15 mg PO BEDTIME PRN mycophenolate mofetiL [Mycophenolate Mofetil] Med 02/21/20 09:00 Ordered 1,000 mg PO BID predniSONE [Prednisone] Med 02/21/20 09:00 Ordered 2.5 mg PO DAILY risperiDONE [RisperiDAL] Med 02/21/20 21:00 Ordered 0.5 mg PO BEDTIME Antiembolic Hose [OM.PC] Per Unit Routine Oth 02/21/20 00:32 Ordered Peripheral IV Insertion Adult [OM.PC] Stat Oth 02/20/20 22:12 Ordered Saline Lock Insert [OM.PC] Routine Oth 02/21/20 00:32 Ordered Resuscitation Status Routine Resus Stat 02/21/20 00:32 Ordered Medication Orders Acetaminophen (Tylenol) 650 mg PO Q4H PRN PRN Reason: Pain (Mild 1-3)/fever Hydrocodone Bitart/Acetaminophen ([place] 325-10 Mg) 1 tab PO Q4H PRN PRN Reason: Pain (moderate 4-6) Cyanocobalamin (Vitamin B12) 1,000 mcg PO DAILY [facility] Docusate Sodium (Colace) 100 mg PO BID PRN PRN Reason: Constipation Enalapril Maleate (Vasotec) 10 mg PO DAILY [facility] Furosemide (Lasix) 20 mg PO DAILY [facility] Glimepiride (Amaryl) 2 mg PO DAILY [facility] Heparin Sodium (Porcine) (Heparin Sodium) 5,000 units SUBCUT Q8HR [facility] Insulin Human Lispro (Humalog) 0 unit SUBCUT ACBED [facility]; Protocol Metoprolol Tartrate (Lopressor) 50 mg PO BID [facility] Morphine Sulfate (Morphine) 1 mg IVPUSH Q2H PRN PRN Reason: Pain (severe 7-10) Non-Formulary Medication (Latanoprost/Pf [Latanoprost 0.005% Eye Drop]) 1 drop EYERT BEDTIME [facility] Non-Formulary Medication (Mycophenolate Mofetil [Mycophenolate Mofetil]) 1,000 mg PO BID [facility] Non-Formulary Medication (Prednisone [Prednisone]) 2.5 mg PO DAILY [facility] Omeprazole (Omeprazole) 20 mg PO ACBREAKFAST [facility] Ondansetron HCl (Zofran Odt) 4 mg PO Q6H PRN PRN Reason: nausea, able to take PO Ondansetron HCl (Zofran) 4 mg IVPUSH Q6H PRN PRN Reason: Nausea/Vomiting Risperidone (Risperidal) 0.5 mg PO BEDTIME [facility] Simvastatin (Zocor) 40 mg PO BEDTIME [facility] Sodium Chloride (Saline Flush) 10 ml FLUSH ASDIRECTED PRN PRN Reason: Keep Vein Open Sodium Chloride (Saline Flush) 10 ml FLUSH ASDIRECTED PRN PRN Reason: Keep Vein Open Temazepam (Restoril) 15 mg PO BEDTIME PRN PRN Reason: Sleep Assessment/Plan Comment:: 84 years old lady with a history of diabetes, hypertension, dyslipidemia, bullous pemphigoid on immunosuppressants, 5.1 x 6 cm thoracic aortic aneurysm The patient lives in basic care facility. The patient fell. This was due to an accident, fell over a chair. Hit all extremities and face as well. Accidental fall No apparent bony injury Multiple bruises Will have physical and occupational therapy evaluation Bullous pemphigoid, on immunosuppressant continue CellCept and prednisone Diabetes Hold metformin Continue Amaryl Follow blood sugars and use supplemental insulin as needed Hypertension Treat with metoprolol, Vasotec We will follow and adjust as needed Dyslipidemia Continue statin DVT prophylaxis with subcutaneous heparin
[2020-02-21] MEDS: Omeprazole 20 MG Cap.CR PO SCH (05:48)
[2020-02-21] MEDS: Heparin Sodium 5,000 Units/ML Vial SUBCUT SCH ×3 (05:48→22:00)
[2020-02-21 06:51] LABS: ANION GAP 12.5 mEq/L (7-13); CHLORIDE,CL 101 mmol/L (98-107); SODIUM,NA 137 mmol/L (136-145)
[2020-02-21] MEDS: Insulin Lispro 100 Units/ML 3 ML Vial SUBCUT SCH ×4 (08:50→21:52)
--- NOTE | 2020-02-21 09:30 | PCM.PN ---
- General Info Date of Service: 02/21/20 Subjective Update: Feeling generally weak. Malaise. Unable to eat. No specific nausea but the mouth is sore. has diffuse generalized muscle ache. no fever,no sob, no cp, Functional Status: Denies: Tolerating Diet - Review of Systems General: Reports: Weakness, Malaise. Denies: Fever Pulmonary: Denies: Shortness of Breath Cardiovascular: Denies: Chest Pain, Edema Gastrointestinal: Denies: Abdominal Pain Psychiatric: Reports: Confusion - Patient Data Vitals - Most Recent: Last Vital Signs Temp 96.8 F L 02/21/20 08:00 Pulse 91 02/21/20 08:00 Resp 20 02/21/20 08:00 BP 148/86 H 02/21/20 08:00 Pulse Ox 98 02/21/20 08:00 Weight - Most Recent: 134 lb 1.6 oz I&O - Last 24 Hours: Intake & Output 02/20/20 02/21/20 02/21/20 22:59 06:59 14:59 Intake Total 100 Output Total 400 Balance -400 100 Lab Results Last 24 Hours: Laboratory Results - last 24 hr 02/20/20 02/20/20 02/20/20 Range/Units 22:10 22:10 22:10 WBC 10.0 (5.0-10.0) 10^3/uL RBC 4.45 (4.2-5.4) 10^6/uL Hgb 12.1 D (12.0-16.0) g/dL Hct 36.4 L (37.0-47.0) % MCV 81.8 D (80-100) fL MCH 27.2 (27.0-34.0) pg MCHC 33.2 (33.0-35.0) g/dL Plt Count 301 (150-450) 10^3/uL Neut % (Auto) 78.8 H (42.2-75.2) % Lymph % (Auto) 13.3 L (20.5-50.1) % [place] % (Auto) 5.3 (2-8) % Eos % (Auto) 2.2 (1.0-3.0) % Baso % (Auto) 0.4 (0.0-1.0) % Add Manual Diff Yes Neutrophils % (Manual) 73 (42-75) % Band Neutrophils % 6 % Lymphocytes % (Manual) 12 L (20-50) % Monocytes % (Manual) 6 (2-8) % Eosinophils % (Manual) 3 (1-3) % PT 9.6 (9.0-12.0) SEC INR 1.0 (0.9-1.2) Sodium 139 (136-145) mmol/L Potassium 3.9 (3.5-5.1) mmol/L Chloride 101 (98-107) mmol/L Carbon Dioxide 25 (21-32) mmol/L Anion Gap 16.9 H (7-13) mEq/L BUN 15 (7-18) mg/dL Creatinine 1.02 (0.55-1.02) mg/dL Est Cr Clr Drug Dosing TNP Estimated GFR (MDRD) 51 BUN/Creatinine Ratio 14.7 (No establ ref range) Glucose 116 H (74-99) mg/dL POC Glucose (83-110) mg/dl Calcium 9.2 (8.5-10.1) mg/dL Total Bilirubin 0.4 (0.2-1.0) mg/dL AST 14 L (15-37) U/L ALT 22 (14-59) U/L Alkaline Phosphatase 68 (46-116) U/L Total Protein 6.4 (6.4-8.2) g/dL Albumin 3.6 (3.4-5.0) g/dL Globulin 2.8 Albumin/Globulin Ratio 1.3 02/21/20 02/21/20 02/21/20 Range/Units 06:18 06:18 08:02 WBC 6.3 (5.0-10.0) 10^3/uL RBC 3.89 L (4.2-5.4) 10^6/uL Hgb 10.6 L D (12.0-16.0) g/dL Hct 32.0 L (37.0-47.0) % MCV 82.3 (80-100) fL MCH 27.2 (27.0-34.0) pg MCHC 33.1 (33.0-35.0) g/dL Plt Count 252 (150-450) 10^3/uL Neut % (Auto) (42.2-75.2) % Lymph % (Auto) (20.5-50.1) % [place] % (Auto) (2-8) % Eos % (Auto) (1.0-3.0) % Baso % (Auto) (0.0-1.0) % Add Manual Diff Neutrophils % (Manual) (42-75) % Band Neutrophils % % Lymphocytes % (Manual) (20-50) % Monocytes % (Manual) (2-8) % Eosinophils % (Manual) (1-3) % PT (9.0-12.0) SEC INR (0.9-1.2) Sodium 137 (136-145) mmol/L Potassium 3.5 (3.5-5.1) mmol/L Chloride 101 (98-107) mmol/L Carbon Dioxide 27 (21-32) mmol/L Anion Gap 12.5 (7-13) mEq/L BUN 17 (7-18) mg/dL Creatinine 0.81 (0.55-1.02) mg/dL Est Cr Clr Drug Dosing 41.24 Estimated GFR (MDRD) > 60 BUN/Creatinine Ratio (No establ ref range) Glucose 115 H (74-99) mg/dL POC Glucose 117 H (83-110) mg/dl Calcium 9.0 (8.5-10.1) mg/dL Total Bilirubin (0.2-1.0) mg/dL AST (15-37) U/L ALT (14-59) U/L Alkaline Phosphatase (46-116) U/L Total Protein (6.4-8.2) g/dL Albumin (3.4-5.0) g/dL Globulin Albumin/Globulin Ratio Med Orders - Current: Current Medications Acetaminophen (Tylenol) 650 mg PO Q4H PRN PRN Reason: Pain (Mild 1-3)/fever Hydrocodone Bitart/Acetaminophen ([place] 325-10 Mg) 1 tab PO Q4H PRN PRN Reason: Pain (moderate 4-6) Cyanocobalamin (Vitamin B12) 1,000 mcg PO DAILY [facility] Docusate Sodium (Colace) 100 mg PO BID PRN PRN Reason: Constipation Enalapril Maleate (Vasotec) 10 mg PO DAILY [facility] Furosemide (Lasix) 20 mg PO DAILY [facility] Glimepiride (Amaryl) 2 mg PO DAILY [facility] Heparin Sodium (Porcine) (Heparin Sodium) 5,000 units SUBCUT Q8HR [facility] Last Admin: 02/21/20 05:48 Dose: 5,000 units Insulin Human Lispro (Humalog) 0 unit SUBCUT ACBED [facility]; Protocol Last Admin: 02/21/20 08:50 Dose: Not Given Latanoprost (Xalatan 0.005% Ophth Soln) 0 ml EYERT BEDTIME [facility] Metoprolol Tartrate (Lopressor) 50 mg PO BID [facility] Morphine Sulfate (Morphine) 1 mg IVPUSH Q2H PRN PRN Reason: Pain (severe 7-10) Mycophenolate Mofetil (Cellcept) 1,000 mg PO BID [facility] Omeprazole (Omeprazole) 20 mg PO ACBREAKFAST [facility] Last Admin: 02/21/20 05:48 Dose: 20 mg Ondansetron HCl (Zofran Odt) 4 mg PO Q6H PRN PRN Reason: nausea, able to take PO Ondansetron HCl (Zofran) 4 mg IVPUSH Q6H PRN PRN Reason: Nausea/Vomiting Prednisone (Prednisone) 2.5 mg PO DAILY [facility] Risperidone (Risperidal) 0.5 mg PO BEDTIME [facility] Simvastatin (Zocor) 40 mg PO BEDTIME [facility] Sodium Chloride (Saline Flush) 10 ml FLUSH ASDIRECTED PRN PRN Reason: Keep Vein Open Temazepam (Restoril) 15 mg PO BEDTIME PRN PRN Reason: Sleep Discontinued Medications Sodium Chloride (Saline Flush) 10 ml FLUSH ASDIRECTED PRN PRN Reason: Keep Vein Open - Exam General: Alert. No: Oriented Lungs: Clear to Auscultation, Normal Respiratory Effort Cardiovascular: Regular Rate, Regular Rhythm GI/Abdominal Exam: Normal Bowel Sounds, Soft, Non-Tender Extremities: No Pedal Edema Skin: Warm, Other (Perioral swelling, bruise, bruises on extremities, left knee swelling and bruise) Sepsis Event Note - Evaluation Sepsis Screening Result: No Definite Risk - Focused Exam Vital Signs: Vital Signs Temp Pulse Resp BP BP Pulse Ox 02/21/20 08:00 96.8 F L 91 20 148/86 H 98 02/21/20 00:32 97.0 F 82 16 218/71 H 141/93 H 96 Date Exam was Performed: 02/21/20 Time Exam was Performed: 09:28 - Problem List & Annotations (1) Fall, accidental SNOMED Code(s): 595527152 Code(s): W19.XXXA - UNSPECIFIED FALL, INITIAL ENCOUNTER Status: Acute Current Visit: Yes Qualifiers: Encounter type: initial encounter Qualified Code(s): W19.XXXA - Unspecified fall, initial encounter (2) Bullous pemphigoid SNOMED Code(s): 48250400 Code(s): L12.0 - BULLOUS PEMPHIGOID Status: Acute Current Visit: Yes (3) Hypertension SNOMED Code(s): 44245853 Code(s): I10 - ESSENTIAL (PRIMARY) HYPERTENSION Status: Acute Current Visit: Yes (4) Dyslipidemia SNOMED Code(s): 887208433 Code(s): E78.5 - HYPERLIPIDEMIA, UNSPECIFIED Status: Acute Current Visit : Yes (5) Depression SNOMED Code(s): 50511990 Code(s): F32.9 - MAJOR DEPRESSIVE DISORDER, SINGLE EPISODE, UNSPECIFIED Status: Acute Current Visit: Yes - Problem List Review Problem List Initiated/Reviewed/Updated: Yes - My Orders Last 24 Hours: My Active Orders 02/21/20 00:32 Oxygen Therapy [RC] PRN Up With Assistance [RC] ASDIRECTED VTE/DVT Education [RC] PER UNIT ROUTINE Vital Signs [RC] Q4H Acetaminophen [Tylenol] 650 mg PO Q4H PRN Acetaminophen/HYDROcodone [[place] 325-10 MG] 1 tab PO Q4H PRN Docusate Sodium [Colace] 100 mg PO BID PRN Morphine 1 mg IVPUSH Q2H PRN Ondansetron [Zofran ODT] 4 mg PO Q6H PRN Ondansetron [Zofran] 4 mg IVPUSH Q6H PRN Temazepam [Restoril] 15 mg PO BEDTIME PRN Antiembolic Hose [OM.PC] Per Unit Routine Saline Lock Insert [OM.PC] Routine Resuscitation Status Routine 02/21/20 00:33 Antiembolic Devices [RC] PER UNIT ROUTINE 02/21/20 00:35 Glucose [Blood Glucose Check, Bedside] [RC] QIDACANDBED OT Evaluation and Treatment [CONS] Routine PT Evaluation and Treatment [CONS] Routine 02/21/20 06:00 Heparin Sodium 5,000 units SUBCUT Q8HR Omeprazole 20 mg PO ACBREAKFAST 02/21/20 07:00 Insulin Lispro [HumaLOG] See Protocol SUBCUT ACBED 02/21/20 09:00 Cyanocobalamin (Vitamin B12) [Vitamin B12] 1,000 mcg PO DAILY Enalapril [Vasotec] 10 mg PO DAILY Furosemide [Lasix] 20 mg PO DAILY Glimepiride [Amaryl] 2 mg PO DAILY Metoprolol Tartrate [Lopressor] 50 mg PO BID mycophenolate mofetiL [Cellcept] 1,000 mg PO BID predniSONE 2.5 mg PO DAILY 02/21/20 21:00 Latanoprost [Xalatan 0.005% Oph Soln] 0 ml EYERT BEDTIME Simvastatin [Zocor] 40 mg PO BEDTIME risperiDONE [RisperiDAL] 0.5 mg PO BEDTIME 02/21/20 Breakfast Consistent Carbohydrate Diet [DIET] - Plan Plan:: 84 years old lady with a history of diabetes, hypertension, dyslipidemia, bullous pemphigoid on immunosuppressants, 5.1 x 6 cm thoracic aortic aneurysm The patient lives in [facility] care facility. The patient fell. This was due to an accident, fell over a chair. bruising on all extremities and face as well. Accidental fall No apparent bony injury Multiple bruises Will have physical and occupational therapy evaluation Bullous pemphigoid, on immunosuppressant continue CellCept and prednisone Diabetes Hold metformin Continue Amaryl Follow blood sugars and use supplemental insulin as needed Hypertension Treat with metoprolol, Vasotec We will follow and adjust as needed Dyslipidemia Continue statin DVT prophylaxis with subcutaneous heparin
[2020-02-21] MEDS: Cyanocobalamin (Vitamin B12) 1,000 MCG Tab PO SCH (10:06)
[2020-02-21] MEDS: Furosemide 20 MG Tab PO SCH (10:06)
[2020-02-21] MEDS: Metoprolol Tartrate 50 MG Tab PO SCH ×2 (10:06→21:52)
[2020-02-21] MEDS: Glimepiride 2 MG Tab PO SCH (10:07)
[2020-02-21] MEDS: Mycophenolate Mofetil 250 MG Cap PO SCH ×2 (10:07→21:38)
[2020-02-21] MEDS: predniSONE 5 MG Tab PO SCH (10:09)
[2020-02-21] MEDS: Acetaminophen 325 MG Tab PO PRN (10:09)
--- NOTE | 2020-02-21 15:58 | CR ---
EXAMINATION: Lumbar Spine 2 or 3V SEX: Female AGE: 84 years CLINICAL HISTORY: 84-year-old female injured in fall (back pain). "No lumbar fracture" reported 2016. Interpretation: AP/lateral views of the lumbar spine confirm osteoporosis, levorotoscoliosis, and new compression FRACTURE (30%) with hypertrophic marginal spondylosis since comparison exam 04 May 2016. No sign of other lower thoracic, lumbar or sacral fracture. No dislocation (spondylolisthesis). Orthopedic nail right hip. Total hip replacement on the left. Symmetric spacing normal SI joints.
--- NOTE | 2020-02-21 16:01 | CR ---
EXAMINATION: Pelvis 1V or 2V SEX: Female AGE: 84 years CLINICAL HISTORY: 84-year-old female complaining of PAIN associated with fall. New compression fracture L2 vertebral body since April 2016 comparison films of the osteoporotic spine. INTERPRETATION: Abnormal. 1. Orthopedic "male" proximal right femur (total left hip replacement i.e. orthopedic prosthesis). 2. Generalized bony demineralization and old nondisplaced pubic rami fractures, on the left. 3. Symmetric spacing normal-appearing SI joints. 4. No acute new fracture/dislocation pelvis or either hip since comparison exam 16 June 2019.
[2020-02-21] MEDS: Acetaminophen/HYDROcodone 325-10 MG Tab PO PRN (16:46)
[2020-02-21] MEDS: risperiDONE 0.5 MG Tab PO SCH (21:38)
[2020-02-21] MEDS: Ciprofloxacin 500 MG Tab PO SCH (21:50)
[2020-02-21] MEDS: Simvastatin 40 MG Tab PO SCH (21:53)
[2020-02-21] MEDS: Latanoprost 0.005% Ophth Soln 2.5 ML Bottle EYERT SCH (22:01)
[2020-02-22] MEDS: Acetaminophen/HYDROcodone 325-10 MG Tab PO PRN (02:25)
[2020-02-22] MEDS: Omeprazole 20 MG Cap.CR PO SCH (05:41)
[2020-02-22] MEDS: Heparin Sodium 5,000 Units/ML Vial SUBCUT SCH ×3 (05:42→22:09)
[2020-02-22] MEDS: Insulin Lispro 100 Units/ML 3 ML Vial SUBCUT SCH ×4 (09:30→22:26)
[2020-02-22] MEDS: predniSONE 5 MG Tab PO SCH (09:41)
[2020-02-22] MEDS: Mycophenolate Mofetil 250 MG Cap PO SCH ×2 (09:41→20:09)
[2020-02-22] MEDS: Cyanocobalamin (Vitamin B12) 1,000 MCG Tab PO SCH (09:46)
[2020-02-22] MEDS: Ciprofloxacin 500 MG Tab PO SCH ×2 (09:46→20:10)
[2020-02-22] MEDS: Metoprolol Tartrate 50 MG Tab PO SCH ×2 (09:46→20:11)
[2020-02-22] MEDS: Furosemide 20 MG Tab PO SCH (09:47)
[2020-02-22] MEDS: Glimepiride 2 MG Tab PO SCH (09:47)
--- NOTE | 2020-02-22 11:34 | PCM.PN ---
- General Info Date of Service: 02/22/20 Subjective Update: Feeling generally stronger. has diffuse generalized muscle ache. has low back pain with ambulation, mod to severe, non radiating, no associated leg numbness, incontinence no fever,no sob, no cp left knee swelling is improved - Review of Systems General: Reports: Weakness. Denies: Fever Pulmonary: Denies: Shortness of Breath Cardiovascular: Reports: Edema. Denies: Chest Pain Gastrointestinal: Denies: Abdominal Pain Genitourinary: Denies: Dysuria Neurological: Reports: Confusion - Patient Data Vitals - Most Recent: Last Vital Signs Temp 97.4 F 02/22/20 08:00 Pulse 77 02/22/20 09:46 Resp 18 02/22/20 08:00 BP 132/53 L 02/22/20 09:46 Pulse Ox 95 02/22/20 08:00 Weight - Most Recent: 134 lb 1.6 oz I&O - Last 24 Hours: Intake & Output 02/21/20 02/22/20 02/22/20 22:59 06:59 14:59 Intake Total 540 400 480 Output Total 380 300 150 Balance 160 100 330 Lab Results Last 24 Hours: Laboratory Results - last 24 hr 02/20/20 02/21/20 02/21/20 Range/Units 12:25 12:01 16:52 POC Glucose 141 H 140 H (83-110) mg/dl Urine Color Yellow (YELLOW) Urine Appearance Cloudy (CLEAR) Urine pH 7.0 (5.0-9.0) Ur Specific [place] 1.015 (1.005-1.030) Urine Protein Negative (NEGATIVE) Urine Glucose (UA) Negative (NEGATIVE) Urine Ketones Negative (NEGATIVE) Urine Occult Blood Trace-intact H (NEGATIVE) Urine Nitrite Negative (NEGATIVE) Urine Bilirubin Negative (NEGATIVE) Urine Urobilinogen 0.2 (0.2-1.0) mg/dL Ur Leukocyte Esterase Large H (NEGATIVE) Urine RBC 0-5 /HPF Urine WBC >100 H (0-5/HPF) /HPF Ur Epithelial Cells Rare (NOT SEEN) /HPF Urine Bacteria Many H (0-FEW/HPF) /HPF Urine Mucus Not seen (NOT SEEN) /LPF 02/21/20 02/22/20 Range/Units 21:14 07:50 POC Glucose 147 H 107 (83-110) mg/dl Urine Color (YELLOW) Urine Appearance (CLEAR) Urine pH (5.0-9.0) Ur Specific [place] (1.005-1.030) Urine Protein (NEGATIVE) Urine Glucose (UA) (NEGATIVE) Urine Ketones (NEGATIVE) Urine Occult Blood (NEGATIVE) Urine Nitrite (NEGATIVE) Urine Bilirubin (NEGATIVE) Urine Urobilinogen (0.2-1.0) mg/dL Ur Leukocyte Esterase (NEGATIVE) Urine RBC /HPF Urine WBC (0-5/HPF) /HPF Ur Epithelial Cells (NOT SEEN) /HPF Urine Bacteria (0-FEW/HPF) /HPF Urine Mucus (NOT SEEN) /LPF [place]onimo Results Last 24 Hours: Microbiology 02/20/20 12:25 Urine Culture - Preliminary Urine, Voided Med Orders - Current: Current Medications Acetaminophen (Tylenol) 650 mg PO Q4H PRN PRN Reason: Pain (Mild 1-3)/fever Last Admin: 02/21/20 10:09 Dose: 650 mg Hydrocodone Bitart/Acetaminophen ([place] 325-10 Mg) 1 tab PO Q4H PRN PRN Reason: Pain (moderate 4-6) Last Admin: 02/22/20 02:25 Dose: 1 tab Calcium Carbonate (Calcium Carbonate/Vitamin D 1250 Mg-200 Unit) 1 tab PO BIDMEALS [facility] Ciprofloxacin (Ciprofloxacin Hcl) 250 mg PO BID [facility] Last Admin: 02/22/20 09:46 Dose: 250 mg Cyanocobalamin (Vitamin B12) 1,000 mcg PO DAILY [facility] Last Admin: 02/22/20 09:46 Dose: 1,000 mcg Docusate Sodium (Colace) 100 mg PO BID PRN PRN Reason: Constipation Enalapril Maleate (Vasotec) 10 mg PO DAILY [facility] Last Admin: 02/22/20 09:45 Dose: 10 mg Furosemide (Lasix) 20 mg PO DAILY [facility] Last Admin: 02/22/20 09:47 Dose: 20 mg Glimepiride (Amaryl) 2 mg PO DAILY [facility] Last Admin: 02/22/20 09:47 Dose: 2 mg Heparin Sodium (Porcine) (Heparin Sodium) 5,000 units SUBCUT Q8HR [facility] Last Admin: 02/22/20 05:42 Dose: 5,000 units Insulin Human Lispro (Humalog) 0 unit SUBCUT ACBED [facility]; Protocol Last Admin: 02/22/20 09:30 Dose: Not Given Latanoprost (Xalatan 0.005% Ophth Soln) 0 ml EYERT BEDTIME [facility] Last Admin: 02/21/20 22:01 Dose: 1 drop Lidocaine (Lidoderm 5%) 700 mg TOP DAILY [facility] Metoprolol Tartrate (Lopressor) 50 mg PO BID [facility] Last Admin: 02/22/20 09:46 Dose: 50 mg Morphine Sulfate (Morphine) 1 mg IVPUSH Q2H PRN PRN Reason: Pain (severe 7-10) Mycophenolate Mofetil (Cellcept) 1,000 mg PO BID [facility] Last Admin: 02/22/20 09:41 Dose: 1,000 mg Omeprazole (Omeprazole) 20 mg PO ACBREAKFAST [facility] Last Admin: 02/22/20 05:41 Dose: 20 mg Ondansetron HCl (Zofran Odt) 4 mg PO Q6H PRN PRN Reason: nausea, able to take PO Ondansetron HCl (Zofran) 4 mg IVPUSH Q6H PRN PRN Reason: Nausea/Vomiting Prednisone (Prednisone) 2.5 mg PO DAILY [facility] Last Admin: 02/22/20 09:41 Dose: 2.5 mg Risperidone (Risperidal) 0.5 mg PO BEDTIME [facility] Last Admin: 02/21/20 21:38 Dose: 0.5 mg Simvastatin (Zocor) 40 mg PO BEDTIME [facility] Last Admin: 02/21/20 21:53 Dose: 40 mg Sodium Chloride (Saline Flush) 10 ml FLUSH ASDIRECTED PRN PRN Reason: Keep Vein Open Temazepam (Restoril) 15 mg PO BEDTIME PRN PRN Reason: Sleep Discontinued Medications Sodium Chloride (Saline Flush) 10 ml FLUSH ASDIRECTED PRN PRN Reason: Keep Vein Open Last Admin: 02/21/20 22:03 Dose: 10 ml - Exam General: Alert, Oriented (mostly) Lungs: Rhonchi GI/Abdominal Exam: Normal Bowel Sounds, Soft Extremities: Pedal Edema (trace left sided) Skin: Warm, Dry, Other (perioral bruise) Neurological: No New Focal Deficit Psy/Mental Status: Alert. No: Anxious Sepsis Event Note - Evaluation Sepsis Screening Result: No Definite Risk - Focused Exam Vital Signs: Vital Signs Temp Pulse Pulse Resp BP BP Pulse Ox 02/22/20 09:46 77 132/53 L 02/22/20 09:45 132/53 L 02/22/20 08:00 97.4 F 77 18 132/53 L 95 02/22/20 00:32 02/22/20 00:13 97.5 F 18 161/73 H 99 Pulse Ox 02/22/20 09:46 02/22/20 09:45 02/22/20 08:00 02/22/20 00:32 99 02/22/20 00:13 Date Exam was Performed: 02/22/20 Time Exam was Performed: 11:30 - Problem List & Annotations (1) Fall, accidental SNOMED Code(s): 172121288 Code(s): W19.XXXA - UNSPECIFIED FALL, INITIAL ENCOUNTER Status: Acute Current Visit: Yes Qualifiers: Encounter type: initial encounter Qualified Code(s): W19.XXXA - Unspecified fall, initial encounter (2) Bullous pemphigoid SNOMED Code(s): 25236176 Code(s): L12.0 - BULLOUS PEMPHIGOID Status: Acute Current Visit: Yes (3) Hypertension SNOMED Code(s): 20953065 Code(s): I10 - ESSENTIAL (PRIMARY) HYPERTENSION Status: Acute Current Visit: Yes (4) Dyslipidemia SNOMED Code(s): 566829533 Code(s): E78.5 - HYPERLIPIDEMIA, UNSPECIFIED Status: Acute Current Visit : Yes (5) Depression SNOMED Code(s): 82591341 Code(s): F32.9 - MAJOR DEPRESSIVE DISORDER, SINGLE EPISODE, UNSPECIFIED Status: Acute Current Visit: Yes (6) UTI (urinary tract infection) SNOMED Code(s): 93887726 Code(s): N39.0 - URINARY TRACT INFECTION, SITE NOT SPECIFIED Status: Acute Current Visit: Yes - Problem List Review Problem List Initiated/Reviewed/Updated: Yes - My Orders Last 24 Hours: My Active Orders 02/21/20 21:00 Ciprofloxacin [Ciprofloxacin HCl] 250 mg PO BID Latanoprost [Xalatan 0.005% Ophth Soln] 0 ml EYERT BEDTIME Simvastatin [Zocor] 40 mg PO BEDTIME risperiDONE [RisperiDAL] 0.5 mg PO BEDTIME 02/22/20 11:30 Lidocaine 5% [Lidoderm 5%] 700 mg TOP DAILY 02/22/20 18:00 Calcium Carbonate/Vitamin D3 [Calcium Carbonate/Vitamin D 1250 MG-200 Unit] 1 tab PO BIDMEALS 02/23/20 05:15 BASIC METABOLIC PANEL,BMP [CHEM] AM CBC WITH AUTO DIFF [HEME] AM - Plan Plan:: 84 years old lady with a history of diabetes, hypertension, dyslipidemia, bullous pemphigoid on immunosuppressants, 5.1 x 6 cm thoracic aortic aneurysm The patient lives in basic care facility. The patient fell. This was due to an accident, fell over a chair. bruising on all extremities and face as well. Accidental fall No apparent bony injury Multiple bruises xray showed 30% compression fx. of L spine add lidoderm patch add vit d and calcium cont physical and occupational therapy f/up with PMD re: osteoporosis Bullous pemphigoid, on immunosuppressant continue CellCept and prednisone Diabetes Hold metformin Continue Amaryl Follow blood sugars and use supplemental insulin as needed Hypertension Treat with metoprolol, Vasotec We will follow and adjust as needed Dyslipidemia Continue statin uti start cipro DVT prophylaxis with subcutaneous heparin
[2020-02-22] MEDS: Lidocaine 5% 700 MG Patch TOP SCH (13:07)
[2020-02-22] MEDS: Calcium Carbonate/Vitamin D3 1250 MG-200 Unit Tab PO SCH ×2 (13:08→18:19)
[2020-02-22] MEDS: Acetaminophen 325 MG Tab PO PRN (16:35)
[2020-02-22] MEDS: risperiDONE 0.5 MG Tab PO SCH (20:11)
[2020-02-22] MEDS: Simvastatin 40 MG Tab PO SCH (20:11)
[2020-02-22] MEDS: Latanoprost 0.005% Ophth Soln 2.5 ML Bottle EYERT SCH (20:13)
[2020-02-22] MEDS ORDERED: REMOVE TRDERM SCH (23:30)
[2020-02-23] MEDS: Acetaminophen 325 MG Tab PO PRN (01:33)
[2020-02-23 06:04] LABS: ANION GAP 12.5 mEq/L (7-13); CHLORIDE,CL 101 mmol/L (98-107); SODIUM,NA 138 mmol/L (136-145)
[2020-02-23] MEDS: Omeprazole 20 MG Cap.CR PO SCH (06:21)
[2020-02-23] MEDS: Heparin Sodium 5,000 Units/ML Vial SUBCUT SCH ×2 (06:22→14:49)
[2020-02-23] MEDS: Insulin Lispro 100 Units/ML 3 ML Vial SUBCUT SCH ×3 (08:06→17:21)
[2020-02-23] MEDS: Calcium Carbonate/Vitamin D3 1250 MG-200 Unit Tab PO SCH ×2 (08:30→18:11)
[2020-02-23] MEDS: Furosemide 20 MG Tab PO SCH (08:31)
[2020-02-23] MEDS: Ciprofloxacin 500 MG Tab PO SCH (08:31)
[2020-02-23] MEDS: Glimepiride 2 MG Tab PO SCH (08:31)
[2020-02-23] MEDS: Cyanocobalamin (Vitamin B12) 1,000 MCG Tab PO SCH (08:32)
[2020-02-23] MEDS: predniSONE 5 MG Tab PO SCH (08:32)
[2020-02-23] MEDS: Metoprolol Tartrate 50 MG Tab PO SCH (08:35)
[2020-02-23] MEDS: Mycophenolate Mofetil 250 MG Cap PO SCH (08:35)
[2020-02-23] MEDS: Lidocaine 5% 700 MG Patch TOP SCH (08:37)
--- NOTE | 2020-02-23 09:27 | PCM.DCSUM1 ---
Discharge Summary - Hospital Course Free Text/Narrative:: 84 years old lady with a history of diabetes, hypertension, dyslipidemia, bullous pemphigoid on immunosuppressants, 5.1 x 6 cm thoracic aortic aneurysm The patient lives in basic care facility. The patient fell. This was due to an accident, fell over a chair. bruising on all extremities and face as well. Accidental fall No apparent bony injury Multiple bruises xray showed 30% compression fx. of L spine use lidoderm patch improved with physical and occupational therapy will be discharged to stay with family before returning to basic care f/up with PMD re: osteoporosis Bullous pemphigoid, on immunosuppressant continue CellCept and prednisone Diabetes resume metformin Continue Amaryl Hypertension Treat with metoprolol, Vasotec Dyslipidemia Continue statin uti with E coli treat with cipro Diagnosis: Stroke: No - Discharge Data Discharge Date: 02/23/20 Discharge Disposition: Home, Self-Care 01 Condition: Good - Referral to Home Health Primary Care Physician: PCP Unobtainable - Discharge Diagnosis/Problem(s) (1) Fall, accidental SNOMED Code(s): 775178637 ICD Code: W19.XXXA - UNSPECIFIED FALL, INITIAL ENCOUNTER Status: Acute Current Visit: Yes Qualifiers: Encounter type: initial encounter Qualified Code(s): W19.XXXA - Unspecified fall, initial encounter (2) Bullous pemphigoid SNOMED Code(s): 43862294 ICD Code: L12.0 - BULLOUS PEMPHIGOID Status: Acute Current Visit: Yes (3) Hypertension SNOMED Code(s): 30602087 ICD Code: I10 - ESSENTIAL (PRIMARY) HYPERTENSION Status: Acute Current Visit: Yes (4) Dyslipidemia SNOMED Code(s): 995053011 ICD Code: E78.5 - HYPERLIPIDEMIA, UNSPECIFIED Status: Acute Current Visit : Yes (5) Depression SNOMED Code(s): 43195075 ICD Code: F32.9 - MAJOR DEPRESSIVE DISORDER, SINGLE EPISODE, UNSPECIFIED Status: Acute Current Visit: Yes (6) UTI (urinary tract infection) SNOMED Code(s): 39428068 ICD Code: N39.0 - URINARY TRACT INFECTION, SITE NOT SPECIFIED Status: Acute Current Visit: Yes - Patient Summary/Data Consults: Consultations 02/21/20 00:35 OT Evaluation and Treatment [CONS] Routine PT Evaluation and Treatment [CONS] Routine - Patient Instructions Diet: Heart Healthy Diet, Diabetic Diet Activity: As Tolerated - Discharge Plan *PRESCRIPTION DRUG MONITORING PROGRAM REVIEWED*: No *COPY OF PRESCRIPTION DRUG MONITORING REPORT IN PATIENT CHATA: No Prescriptions/Med Rec: Acetaminophen/HYDROcodone [[place] 325-10 MG] 1 tab PO Q4H PRN #7 tablet PRN Reason: Pain (Moderate 4-6) Ciprofloxacin [Ciprofloxacin HCl] 250 mg PO BID #4 tablet Lidocaine 5% [Lidoderm 5%] 700 mg TOP DAILY #6 patch Home Medications: Home Meds Acetaminophen [Tylenol Arthritis Pain] 650 mg PO Q6H PRN 02/20/20 [History] Alendronate Sodium [Fosamax] 70 mg PO MANCIA@0600 02/20/20 [History] Calcium Citrate/Vitamin D3 [Calcium Citrate - Vit D Caplet] 1 each PO BID [History] Carboxymethylcellulose Sodium [Artificial Tears] 1 drop EYEBOTH QID PRN [History] Cyanocobalamin (Vitamin B-12) [Vitamin B-12] 1,000 mcg PO DAILY 02/20/20 [ History] Enalapril [Vasotec] 10 mg PO DAILY 02/20/20 [History] Furosemide [Lasix] 20 mg PO DAILY 02/20/20 [History] Glimepiride 2 mg PO DAILY 02/20/20 [History] Gluc Mancia/Chondro Mancia A/Vit C/Mn [Glucosamine-Chondroitin Cap] 1 each PO DAILY 11/09 [History] Latanoprost/Pf [Latanoprost 0.005% Eye Drop] 1 drop EYERT BEDTIME 02/20/20 [ History] Magnesium Hydroxide [Milk of Magnesia] 30 ml PO ASDIRECTED PRN 02/20/20 [History ] Meloxicam 15 mg PO DAILY 02/20/20 [History] Metoprolol Tartrate 50 mg PO BID 02/20/20 [History] Omeprazole 20 mg PO ACBREAKFAST 02/20/20 [History] Simvastatin 40 mg PO BEDTIME 02/20/20 [History] metFORMIN HCl [Fortamet] 1,000 mg PO BIDMEALS 02/20/20 [History] mycophenolate mofetiL [Mycophenolate Mofetil] 1,000 mg PO BID 02/20/20 [History] predniSONE [Prednisone] 2.5 mg PO DAILY 02/20/20 [History] risperiDONE 0.5 mg PO BEDTIME 02/20/20 [History] Krill/Om-3/DHA/EPA/Phospho/Ast [Krill Oil 1,000 mg Softgel] 1,000 mg PO DAILY [History] Sennosides [Senokot] 8.6 mg PO BID PRN 02/21/20 [History] Acetaminophen/HYDROcodone [[place] 325-10 MG] 1 tab PO Q4H PRN #7 tablet 02/23/20 [Rx] Ciprofloxacin [Ciprofloxacin HCl] 250 mg PO BID #4 tablet 02/23/20 [Rx] Lidocaine 5% [Lidoderm 5%] 700 mg TOP DAILY #6 patch 02/23/20 [Rx] Forms: ED Department Discharge Referrals: PCP,Unobtain [Primary Care Provider] - - Discharge Summary/Plan Comment DC Time >30 min.: No - General Info Date of Service: 02/23/20 Subjective Update: Feeling generally stronger. has diffuse generalized muscle ache. has low back pain with getting up movmements, no pain at rest, with movements it is mod to severe, non radiating, no associated leg numbness, incontinence no fever,no sob, no cp left knee swelling is improved Functional Status: Reports: Pain Controlled, Tolerating Diet, Ambulating (with stand by assistence) - Review of Systems General: Denies: Fever, Weakness Cardiovascular: Denies: Chest Pain, Edema Neurological: Reports: Confusion (mild ) - Patient Data Vitals - Most Recent: Last Vital Signs Temp 97.3 F 02/23/20 08:39 Pulse 99 02/23/20 08:39 Resp 20 02/23/20 08:39 BP 141/65 H 02/23/20 08:39 Pulse Ox 95 02/23/20 08:39 Weight - Most Recent: 134 lb 1.6 oz I&O - Last 24 hours: Intake & Output 02/22/20 02/23/20 02/23/20 22:59 06:59 14:59 Intake Total 800 300 300 Output Total 700 800 500 Balance 100 -500 -200 Lab Results - Last 24 hrs: Laboratory Results - last 24 hr 02/22/20 02/22/20 02/22/20 Range/Units 07:50 11:39 16:31 WBC (5.0-10.0) 10^3/uL RBC (4.2-5.4) 10^6/uL Hgb (12.0-16.0) g/dL Hct (37.0-47.0) % MCV (80-100) fL MCH (27.0-34.0) pg MCHC (33.0-35.0) g/dL Plt Count (150-450) 10^3/uL Neut % (Auto) (42.2-75.2) % Lymph % (Auto) (20.5-50.1) % [place]ner % (Auto) (2-8) % Eos % (Auto) (1.0-3.0) % Baso % (Auto) (0.0-1.0) % Sodium (136-145) mmol/L Potassium (3.5-5.1) mmol/L Chloride (98-107) mmol/L Carbon Dioxide (21-32) mmol/L Anion Gap (7-13) mEq/L BUN (7-18) mg/dL Creatinine (0.55-1.02) mg/dL Est Cr Clr Drug Dosing mL/min Estimated GFR (MDRD) Glucose (74-99) mg/dL POC Glucose 107 219 H 128 H (83-110) mg/dl Calcium (8.5-10.1) mg/dL 02/22/20 02/23/20 02/23/20 Range/Units 22:07 05:35 05:35 WBC 5.0 (5.0-10.0) 10^3/uL RBC 3.91 L (4.2-5.4) 10^6/uL Hgb 10.4 L (12.0-16.0) g/dL Hct 31.8 L (37.0-47.0) % MCV 81.3 (80-100) fL MCH 26.6 L (27.0-34.0) pg MCHC 32.7 L (33.0-35.0) g/dL Plt Count 271 (150-450) 10^3/uL Neut % (Auto) 67.7 (42.2-75.2) % Lymph % (Auto) 18.7 L (20.5-50.1) % Bonner % (Auto) 7.2 (2-8) % Eos % (Auto) 5.8 H (1.0-3.0) % Baso % (Auto) 0.6 (0.0-1.0) % Sodium 138 (136-145) mmol/L Potassium 3.5 (3.5-5.1) mmol/L Chloride 101 (98-107) mmol/L Carbon Dioxide 28 (21-32) mmol/L Anion Gap 12.5 (7-13) mEq/L BUN 13 (7-18) mg/dL Creatinine 0.79 (0.55-1.02) mg/dL Est Cr Clr Drug Dosing 42.28 mL/min Estimated GFR (MDRD) > 60 Glucose 126 H (74-99) mg/dL POC Glucose 163 H (83-110) mg/dl Calcium 8.8 (8.5-10.1) mg/dL 02/23/20 Range/Units 07:54 WBC (5.0-10.0) 10^3/uL RBC (4.2-5.4) 10^6/uL Hgb (12.0-16.0) g/dL Hct (37.0-47.0) % MCV (80-100) fL MCH (27.0-34.0) pg MCHC (33.0-35.0) g/dL Plt Count (150-450) 10^3/uL Neut % (Auto) (42.2-75.2) % Lymph % (Auto) (20.5-50.1) % Bonner % (Auto) (2-8) % Eos % (Auto) (1.0-3.0) % Baso % (Auto) (0.0-1.0) % Sodium (136-145) mmol/L Potassium (3.5-5.1) mmol/L Chloride (98-107) mmol/L Carbon Dioxide (21-32) mmol/L Anion Gap (7-13) mEq/L BUN (7-18) mg/dL Creatinine (0.55-1.02) mg/dL Est Cr Clr Drug Dosing mL/min Estimated GFR (MDRD) Glucose (74-99) mg/dL POC Glucose 132 H (83-110) mg/dl Calcium (8.5-10.1) mg/dL GLEN Results - Last 24 hrs: Microbiology 02/20/20 12:25 Urine Culture - Final Urine, Voided Escherichia Coli Streptococcus Bovis Ii Med Orders - Current: Current Medications Acetaminophen (Tylenol) 650 mg PO Q4H PRN PRN Reason: Pain (Mild 1-3)/fever Last Admin: 02/23/20 01:33 Dose: 650 mg Hydrocodone Bitart/Acetaminophen ([place] 325-10 Mg) 1 tab PO Q4H PRN PRN Reason: Pain (moderate 4-6) Last Admin: 02/22/20 02:25 Dose: 1 tab Calcium Carbonate (Calcium Carbonate/Vitamin D 1250 Mg-200 Unit) 1 tab PO BIDMEALS ON LICENSE OF [facility] Last Admin: 02/23/20 08:30 Dose: 1 tab Ciprofloxacin (Ciprofloxacin Hcl) 250 mg PO BID ON [facility] OF [facility] Last Admin: 02/23/20 08:31 Dose: 250 mg Cyanocobalamin (Vitamin B12) 1,000 mcg PO DAILY ON [facility] OF [facility] Last Admin: 02/23/20 08:32 Dose: 1,000 mcg Docusate Sodium (Colace) 100 mg PO BID PRN PRN Reason: Constipation Enalapril Maleate (Vasotec) 10 mg PO DAILY [facility] Last Admin: 02/23/20 08:32 Dose: 10 mg Furosemide (Lasix) 20 mg PO DAILY [facility] Last Admin: 02/23/20 08:31 Dose: 20 mg Glimepiride (Amaryl) 2 mg PO DAILY [facility] Last Admin: 02/23/20 08:31 Dose: 2 mg Heparin Sodium (Porcine) (Heparin Sodium) 5,000 units SUBCUT Q8HR ON [facility] OF [facility] Last Admin: 02/23/20 06:22 Dose: 5,000 units Insulin Human Lispro (Humalog) 0 unit SUBCUT ACBED ON LICENSE OF [facility]; Protocol Last Admin: 02/23/20 08:06 Dose: Not Given Lactulose (Cephulac) 20 gm PO ONETIME ONE Stop: 02/23/20 09:23 Latanoprost (Xalatan 0.005% Ophth Soln) 0 ml EYERT BEDTIME ON [facility] OF [facility] Last Admin: 02/22/20 20:13 Dose: 1 drop Lidocaine (Lidoderm 5%) 700 mg TOP DAILY [facility] Last Admin: 02/23/20 08:37 Dose: 700 mg Metoprolol Tartrate (Lopressor) 50 mg PO BID ON [facility] Last Admin: 02/23/20 08:35 Dose: 50 mg Miscellaneous Information (Remove Patch) 1 ea TRDERM Q24H ON LICENSE OF [facility] Morphine Sulfate (Morphine) 1 mg IVPUSH Q2H PRN PRN Reason: Pain (severe 7-10) Mycophenolate Mofetil (Cellcept) 1,000 mg PO BID ON [facility] OF [facility] Last Admin: 02/23/20 08:35 Dose: 1,000 mg Omeprazole (Omeprazole) 20 mg PO ACBREAKFAST ON [facility] OF [facility] Last Admin: 02/23/20 06:21 Dose: 20 mg Ondansetron HCl (Zofran Odt) 4 mg PO Q6H PRN PRN Reason: nausea, able to take PO Ondansetron HCl (Zofran) 4 mg IVPUSH Q6H PRN PRN Reason: Nausea/Vomiting Prednisone (Prednisone) 2.5 mg PO DAILY [facility] Last Admin: 02/23/20 08:32 Dose: 2.5 mg Risperidone (Risperidal) 0.5 mg PO BEDTIME ON [facility] Last Admin: 02/22/20 20:11 Dose: 0.5 mg Simvastatin (Zocor) 40 mg PO BEDTIME ON [facility] Last Admin: 02/22/20 20:11 Dose: 40 mg Sodium Chloride (Saline Flush) 10 ml FLUSH ASDIRECTED PRN PRN Reason: Keep Vein Open Last Admin: 02/22/20 20:12 Dose: 10 ml Temazepam (Restoril) 15 mg PO BEDTIME PRN PRN Reason: Sleep Discontinued Medications Miscellaneous Information (Remove Patch) 1 ea TRDERM Q24H ON [facility] OF [facility] Last Admin: 02/23/20 00:23 Dose: 1 ea Sodium Chloride (Saline Flush) 10 ml FLUSH ASDIRECTED PRN PRN Reason: Keep Vein Open Last Admin: 02/21/20 22:03 Dose: 10 ml - Exam General: Reports: Alert, Oriented (occasional confusion ) Neck: Reports: Supple Lungs: Reports: Clear to Auscultation, Normal Respiratory Effort Cardiovascular: Reports: Regular Rate, Regular Rhythm GI/Abdominal Exam: Normal Bowel Sounds, Soft, Non-Tender Extremities: Other (left knee mild swelling) Skin: Reports: Other (perioral bruises) Neurological: Reports: No New Focal Deficit Psy/Mental Status: Reports: Alert, Normal Affect, Normal Mood
[2020-02-23] MEDS ORDERED: Lactulose Soln 10 GM/15 ML 30 ML UD Cup PO ONE (10:00)
[2020-02-23 17:26] VITALS: BP 157/77; PULSE 82
[2020-02-23] MEDS ORDERED: REMOVE TRDERM SCH (21:00)
== END 2020-02-23 18:00 | disposition home or self-care (01) ==
LOC: DL.ED 21:56 → DL.MS 23:50
PROVIDERS: ADMIT Internal Medicine; ATTEND Internal Medicine
DX: L12.0 Bullous pemphigoid (principal); S00.83XA Contusion of other part of head, initial encounter; N39.0 Urinary tract infection, site not specified; E78.00 Pure hypercholesterolemia, unspecified; I10 Essential (primary) hypertension; E11.9 Type 2 diabetes mellitus without complications; E78.5 Hyperlipidemia, unspecified; J44.9 Chronic obstructive pulmonary disease, unspecified; F32.9 Major depressive disorder, single episode, unspecified; I71.2 Thoracic aortic aneurysm, without rupture; Z79.899 Other long term (current) drug therapy; Z79.84 Long term (current) use of oral hypoglycemic drugs; Z88.0 Allergy status to penicillin; Z88.8 Allergy status to other drugs, medicaments and biological substances; W19.XXXA Unspecified fall, initial encounter
CPT/HCPCS: 36415; 70450; 70486; 72100; 72125; 72170; 73562; 80048; 80053; 81001; 81003; 82962; 85025; 85027; 85610; 87086; 87088; 87186; 97110; 97116; 97161; 97165; 97530; 99285; A9270; J1644; J1815; J7512; 96372; 99284; G0378

== ENCOUNTER 2022-06-12 12:45 | Inpatient (IN) | payer MEDICARE, BC ==
[2022-06-12] MEDS ORDERED: Ibuprofen 400 MG Tab PO PRN (13:13)
[2022-06-12] MEDS ORDERED: Albuterol/Ipratropium 3.0-0.5 MG/3 ML Neb Soln NEB PRN (13:17)
[2022-06-12] MEDS ORDERED: Polyethylene Glycol 3350 Powder 17 GM Packet PO PRN (13:17)
[2022-06-12] MEDS ORDERED: Ondansetron 4 MG Tab.DIS PO PRN (13:17)
[2022-06-12] MEDS ORDERED: Bisacodyl 5 MG Tab PO PRN (13:17)
[2022-06-12] MEDS ORDERED: Magnesium Hydroxide 400 MG/5 ML Susp 30 ML Cup PO PRN (13:35)
[2022-06-12] MEDS ORDERED: Non-Formulary Medication 1 Each (Polyvinyl Alcohol/Povidone/Pf [Refresh Classic Eye Drops] EYEBOTH PRN (13:35)
[2022-06-12] MEDS: metFORMIN 500 MG Tab PO SCH (17:16)
[2022-06-12] MEDS: risperiDONE 0.5 MG Tab PO SCH (20:57)
[2022-06-12] MEDS: Simvastatin 10 MG Tab PO SCH (20:57)
[2022-06-12] MEDS: amLODIPine 5 MG Tab PO SCH (20:57)
[2022-06-12] MEDS: Calcium Carbonate/Vitamin D3 1250 MG-5 MCG Tab PO SCH (20:57)
[2022-06-12] MEDS: Latanoprost 0.005% Ophth Soln 2.5 ML Bottle EYEBOTH SCH (20:59)
[2022-06-12] MEDS: PROPYLENE GLYCOL EYEBOTH PRN (21:00)
[2022-06-12] MEDS: Dorzolamide/Timolol 2%-0.5% Ophth Soln 10 ML Bottle EYERT SCH (21:01)
[2022-06-12] MEDS: MYCOPHENOLATE MOFETIL 500 MG PO SCH (21:02)
[2022-06-12] MEDS: Brimonidine 0.2% Ophth Soln 5 ML Bottle EYERT SCH (21:10)
[2022-06-13] MEDS: Melatonin 3 MG Tab PO PRN (02:23)
[2022-06-13] MEDS: glipiZIDE 5 MG Tab PO SCH (06:47)
[2022-06-13 07:54] LABS: ANION GAP 16.2 mEq/L (7-13)
[2022-06-13] MEDS ORDERED: Diltiazem 180 MG Cap.CD PO SCH (09:00)
[2022-06-13] MEDS: Calcium Carbonate/Vitamin D3 1250 MG-5 MCG Tab PO SCH ×2 (09:11→22:15)
[2022-06-13] MEDS: Cyanocobalamin (Vitamin B12) 1,000 MCG Tab PO SCH (09:11)
[2022-06-13] MEDS: Furosemide 20 MG Tab PO SCH (09:11)
[2022-06-13] MEDS: metFORMIN 500 MG Tab PO SCH ×2 (09:11→17:26)
[2022-06-13] MEDS: Dorzolamide/Timolol 2%-0.5% Ophth Soln 10 ML Bottle EYERT SCH ×2 (10:24→22:12)
[2022-06-13] MEDS: MELOXICAM 15 MG PO SCH (10:25)
[2022-06-13] MEDS: Brimonidine 0.2% Ophth Soln 5 ML Bottle EYERT SCH ×2 (10:25→22:11)
[2022-06-13] MEDS: MYCOPHENOLATE MOFETIL 500 MG PO SCH ×2 (10:26→22:15)
[2022-06-13] MEDS: amLODIPine 5 MG Tab PO SCH (22:12)
[2022-06-13] MEDS: risperiDONE 0.5 MG Tab PO SCH (22:13)
[2022-06-13] MEDS: Latanoprost 0.005% Ophth Soln 2.5 ML Bottle EYEBOTH SCH (22:13)
[2022-06-13] MEDS: Simvastatin 10 MG Tab PO SCH (22:15)
[2022-06-13] MEDS: Sodium Chloride 1 GM Tab PO SCH (22:15)
[2022-06-14] MEDS: glipiZIDE 5 MG Tab PO SCH (07:36)
[2022-06-14] MEDS ORDERED: Diltiazem 120 MG Cap.CD PO SCH (09:00)
[2022-06-14] MEDS: Calcium Carbonate/Vitamin D3 1250 MG-5 MCG Tab PO SCH ×2 (10:29→21:45)
[2022-06-14] MEDS: Brimonidine 0.2% Ophth Soln 5 ML Bottle EYERT SCH ×2 (10:29→21:45)
[2022-06-14] MEDS: metFORMIN 500 MG Tab PO SCH ×2 (10:29→17:51)
[2022-06-14] MEDS: Dorzolamide/Timolol 2%-0.5% Ophth Soln 10 ML Bottle EYERT SCH ×2 (10:30→21:45)
[2022-06-14] MEDS: MYCOPHENOLATE MOFETIL 500 MG PO SCH ×2 (10:31→21:45)
[2022-06-14] MEDS: Sodium Chloride 1 GM Tab PO SCH (10:31)
[2022-06-14] MEDS: Furosemide 20 MG Tab PO SCH (10:31)
[2022-06-14] MEDS: MELOXICAM 15 MG PO SCH (10:31)
[2022-06-14] MEDS: Cyanocobalamin (Vitamin B12) 1,000 MCG Tab PO SCH (10:32)
[2022-06-14] MEDS ORDERED: risperiDONE 0.5 MG Tab PO PRN (16:00)
[2022-06-14] MEDS ORDERED: cloNIDine 0.1 MG Tab PO ONE (21:22)
[2022-06-14] MEDS: amLODIPine 5 MG Tab PO SCH (21:44)
[2022-06-14] MEDS: Latanoprost 0.005% Ophth Soln 2.5 ML Bottle EYEBOTH SCH (21:45)
[2022-06-14] MEDS: Simvastatin 10 MG Tab PO SCH (21:45)
[2022-06-15] MEDS: glipiZIDE 5 MG Tab PO SCH (05:59)
[2022-06-15 07:06] LABS: ANION GAP 12.1 mEq/L (7-13)
[2022-06-15] MEDS: metFORMIN 500 MG Tab PO SCH ×2 (09:09→17:18)
[2022-06-15] MEDS: Calcium Carbonate/Vitamin D3 1250 MG-5 MCG Tab PO SCH ×2 (09:09→20:05)
[2022-06-15] MEDS: Cyanocobalamin (Vitamin B12) 1,000 MCG Tab PO SCH (09:09)
[2022-06-15] MEDS: Diltiazem 180 MG Cap.CD PO SCH (09:09)
[2022-06-15] MEDS: Furosemide 20 MG Tab PO SCH (09:11)
[2022-06-15] MEDS: MELOXICAM 15 MG PO SCH (09:13)
[2022-06-15] MEDS: MYCOPHENOLATE MOFETIL 500 MG PO SCH ×2 (09:14→20:00)
[2022-06-15] MEDS: Dorzolamide/Timolol 2%-0.5% Ophth Soln 10 ML Bottle EYERT SCH ×2 (09:16→20:05)
[2022-06-15] MEDS: Brimonidine 0.2% Ophth Soln 5 ML Bottle EYERT SCH ×2 (09:20→20:06)
[2022-06-15] MEDS: Sodium Chloride 1 GM Tab PO SCH (09:20)
[2022-06-15] MEDS: amLODIPine 5 MG Tab PO SCH (20:01)
[2022-06-15] MEDS: Simvastatin 10 MG Tab PO SCH (20:01)
[2022-06-15] MEDS: cloNIDine 0.1 MG Tab PO SCH (20:05)
[2022-06-15] MEDS: Latanoprost 0.005% Ophth Soln 2.5 ML Bottle EYEBOTH SCH (20:06)
[2022-06-16] MEDS: Acetaminophen 325 MG Tab PO PRN ×2 (03:28→11:13)
[2022-06-16] MEDS: glipiZIDE 5 MG Tab PO SCH (05:49)
[2022-06-16] MEDS: metFORMIN 500 MG Tab PO SCH ×2 (08:08→17:00)
[2022-06-16] MEDS: Diltiazem 180 MG Cap.CD PO SCH (08:46)
[2022-06-16] MEDS: Cyanocobalamin (Vitamin B12) 1,000 MCG Tab PO SCH (08:47)
[2022-06-16] MEDS: Furosemide 20 MG Tab PO SCH (08:47)
[2022-06-16] MEDS: Calcium Carbonate/Vitamin D3 1250 MG-5 MCG Tab PO SCH ×2 (08:47→20:06)
[2022-06-16] MEDS: MYCOPHENOLATE MOFETIL 500 MG PO SCH ×2 (08:49→20:12)
[2022-06-16] MEDS: MELOXICAM 15 MG PO SCH (08:50)
[2022-06-16] MEDS: Brimonidine 0.2% Ophth Soln 5 ML Bottle EYERT SCH ×2 (08:52→20:12)
[2022-06-16] MEDS: Dorzolamide/Timolol 2%-0.5% Ophth Soln 10 ML Bottle EYERT SCH ×2 (08:52→20:13)
[2022-06-16] MEDS: Latanoprost 0.005% Ophth Soln 2.5 ML Bottle EYEBOTH SCH (20:07)
[2022-06-16] MEDS: PROPYLENE GLYCOL EYEBOTH PRN (20:07)
[2022-06-16] MEDS: Simvastatin 10 MG Tab PO SCH (20:08)
[2022-06-16] MEDS: cloNIDine 0.1 MG Tab PO SCH (20:09)
[2022-06-16] MEDS: amLODIPine 5 MG Tab PO SCH (20:10)
[2022-06-17] MEDS: Acetaminophen 325 MG Tab PO PRN ×4 (02:43→22:59)
[2022-06-17] MEDS: glipiZIDE 5 MG Tab PO SCH (06:44)
[2022-06-17] MEDS: Diltiazem 180 MG Cap.CD PO SCH (08:47)
[2022-06-17] MEDS: metFORMIN 500 MG Tab PO SCH ×2 (08:48→17:14)
[2022-06-17] MEDS: Furosemide 20 MG Tab PO SCH (08:49)
[2022-06-17] MEDS: Calcium Carbonate/Vitamin D3 1250 MG-5 MCG Tab PO SCH ×2 (08:49→20:57)
[2022-06-17] MEDS: Cyanocobalamin (Vitamin B12) 1,000 MCG Tab PO SCH (08:49)
[2022-06-17] MEDS: Dorzolamide/Timolol 2%-0.5% Ophth Soln 10 ML Bottle EYERT SCH ×2 (08:56→20:54)
[2022-06-17] MEDS: MELOXICAM 15 MG PO SCH (08:57)
[2022-06-17] MEDS: MYCOPHENOLATE MOFETIL 500 MG PO SCH ×2 (08:57→20:58)
[2022-06-17] MEDS: Brimonidine 0.2% Ophth Soln 5 ML Bottle EYERT SCH ×2 (08:59→20:56)
[2022-06-17] MEDS: Simvastatin 10 MG Tab PO SCH (20:57)
[2022-06-17] MEDS: amLODIPine 5 MG Tab PO SCH (20:57)
[2022-06-17] MEDS: Latanoprost 0.005% Ophth Soln 2.5 ML Bottle EYEBOTH SCH (20:58)
[2022-06-18] MEDS: Acetaminophen 325 MG Tab PO PRN ×2 (07:39→20:39)
[2022-06-18] MEDS: glipiZIDE 5 MG Tab PO SCH (07:39)
[2022-06-18] MEDS: metFORMIN 500 MG Tab PO SCH ×2 (07:40→17:36)
[2022-06-18] MEDS: Diltiazem 180 MG Cap.CD PO SCH (08:59)
[2022-06-18] MEDS: Furosemide 20 MG Tab PO SCH (09:00)
[2022-06-18] MEDS: Cyanocobalamin (Vitamin B12) 1,000 MCG Tab PO SCH (09:00)
[2022-06-18] MEDS: Calcium Carbonate/Vitamin D3 1250 MG-5 MCG Tab PO SCH ×2 (09:00→20:39)
[2022-06-18] MEDS: MELOXICAM 15 MG PO SCH (09:01)
[2022-06-18] MEDS: MYCOPHENOLATE MOFETIL 500 MG PO SCH ×2 (09:02→20:40)
[2022-06-18] MEDS: Dorzolamide/Timolol 2%-0.5% Ophth Soln 10 ML Bottle EYERT SCH ×2 (09:03→20:38)
[2022-06-18] MEDS: Brimonidine 0.2% Ophth Soln 5 ML Bottle EYERT SCH ×2 (09:08→20:37)
[2022-06-18] MEDS: Latanoprost 0.005% Ophth Soln 2.5 ML Bottle EYEBOTH SCH (20:38)
[2022-06-18] MEDS: amLODIPine 5 MG Tab PO SCH (20:39)
[2022-06-18] MEDS: Simvastatin 10 MG Tab PO SCH (20:39)
[2022-06-19] MEDS: metFORMIN 500 MG Tab PO SCH ×2 (07:43→17:21)
[2022-06-19] MEDS: glipiZIDE 5 MG Tab PO SCH (07:43)
[2022-06-19] MEDS: Acetaminophen 325 MG Tab PO PRN (07:44)
[2022-06-19] MEDS: Diltiazem 180 MG Cap.CD PO SCH (09:09)
[2022-06-19] MEDS: Cyanocobalamin (Vitamin B12) 1,000 MCG Tab PO SCH (09:09)
[2022-06-19] MEDS: Calcium Carbonate/Vitamin D3 1250 MG-5 MCG Tab PO SCH ×2 (09:09→20:10)
[2022-06-19] MEDS: Furosemide 20 MG Tab PO SCH (09:10)
[2022-06-19] MEDS: MELOXICAM 15 MG PO SCH (09:11)
[2022-06-19] MEDS: MYCOPHENOLATE MOFETIL 500 MG PO SCH ×2 (09:11→20:14)
[2022-06-19] MEDS: Dorzolamide/Timolol 2%-0.5% Ophth Soln 10 ML Bottle EYERT SCH ×2 (09:15→20:10)
[2022-06-19] MEDS: Brimonidine 0.2% Ophth Soln 5 ML Bottle EYERT SCH ×2 (09:17→20:10)
[2022-06-19] MEDS: amLODIPine 5 MG Tab PO SCH ×2 (20:12→20:28)
[2022-06-19] MEDS: Latanoprost 0.005% Ophth Soln 2.5 ML Bottle EYEBOTH SCH (20:15)
[2022-06-19] MEDS: Simvastatin 10 MG Tab PO SCH (20:15)
[2022-06-20] MEDS: metFORMIN 500 MG Tab PO SCH ×2 (07:58→17:39)
[2022-06-20] MEDS: glipiZIDE 5 MG Tab PO SCH (07:59)
[2022-06-20] MEDS: Calcium Carbonate/Vitamin D3 1250 MG-5 MCG Tab PO SCH ×2 (09:51→20:25)
[2022-06-20] MEDS: Furosemide 20 MG Tab PO SCH (09:51)
[2022-06-20] MEDS: Diltiazem 180 MG Cap.CD PO SCH (09:51)
[2022-06-20] MEDS: Cyanocobalamin (Vitamin B12) 1,000 MCG Tab PO SCH (09:51)
[2022-06-20] MEDS: Brimonidine 0.2% Ophth Soln 5 ML Bottle EYERT SCH ×2 (09:53→20:27)
[2022-06-20] MEDS: Dorzolamide/Timolol 2%-0.5% Ophth Soln 10 ML Bottle EYERT SCH ×2 (09:53→20:24)
[2022-06-20] MEDS: MYCOPHENOLATE MOFETIL 500 MG PO SCH ×2 (09:54→20:28)
[2022-06-20] MEDS: MELOXICAM 15 MG PO SCH (09:56)
[2022-06-20] MEDS: Melatonin 3 MG Tab PO PRN (20:26)
[2022-06-20] MEDS: amLODIPine 5 MG Tab PO SCH (20:28)
[2022-06-20] MEDS: Simvastatin 10 MG Tab PO SCH (20:29)
[2022-06-20] MEDS: Latanoprost 0.005% Ophth Soln 2.5 ML Bottle EYEBOTH SCH (20:30)
[2022-06-20] MEDS: Acetaminophen 325 MG Tab PO PRN (20:31)
[2022-06-21 06:59] LABS: ANION GAP 12.3 mEq/L (7-13)
[2022-06-21] MEDS: glipiZIDE 5 MG Tab PO SCH (08:21)
[2022-06-21] MEDS: Cyanocobalamin (Vitamin B12) 1,000 MCG Tab PO SCH (08:21)
[2022-06-21] MEDS: metFORMIN 500 MG Tab PO SCH ×2 (08:21→17:05)
[2022-06-21] MEDS: Calcium Carbonate/Vitamin D3 1250 MG-5 MCG Tab PO SCH ×2 (08:21→20:22)
[2022-06-21] MEDS: Diltiazem 180 MG Cap.CD PO SCH (08:22)
[2022-06-21] MEDS: Furosemide 20 MG Tab PO SCH (08:22)
[2022-06-21] MEDS: MELOXICAM 15 MG PO SCH (08:28)
[2022-06-21] MEDS: Brimonidine 0.2% Ophth Soln 5 ML Bottle EYERT SCH ×2 (08:29→20:21)
[2022-06-21] MEDS: MYCOPHENOLATE MOFETIL 500 MG PO SCH ×2 (08:29→20:25)
[2022-06-21] MEDS: Dorzolamide/Timolol 2%-0.5% Ophth Soln 10 ML Bottle EYERT SCH ×2 (08:30→20:20)
[2022-06-21 19:31] VITALS: BP 117/65; PULSE 85
[2022-06-21] MEDS: Latanoprost 0.005% Ophth Soln 2.5 ML Bottle EYEBOTH SCH (20:19)
[2022-06-21] MEDS: Simvastatin 10 MG Tab PO SCH (20:21)
[2022-06-21] MEDS: amLODIPine 5 MG Tab PO SCH (20:22)
== END 2022-06-23 11:00 | DRG 948 ==
LOC: DL.MS 13:19 → DL.ZCENSUS 06-22 13:13
PROVIDERS: ADMIT Internal Medicine; ATTEND Internal Medicine
DX: R53.1 Weakness (principal); E87.1 Hypo-osmolality and hyponatremia; N39.0 Urinary tract infection, site not specified; R53.81 Other malaise; S32.511D Fracture of superior rim of right pubis, subsequent encounter for fracture with routine healing; W19.XXXD Unspecified fall, subsequent encounter; Z91.81 History of falling; R41.3 Other amnesia; K57.90 Diverticulosis of intestine, part unspecified, without perforation or abscess without bleeding; D64.9 Anemia, unspecified; E83.42 Hypomagnesemia; E11.65 Type 2 diabetes mellitus with hyperglycemia; I10 Essential (primary) hypertension; H54.7 Unspecified visual loss; M19.90 Unspecified osteoarthritis, unspecified site; R26.89 Other abnormalities of gait and mobility; E78.5 Hyperlipidemia, unspecified; Z96.642 Presence of left artificial hip joint; F41.9 Anxiety disorder, unspecified; F32.A Depression, unspecified; Z88.6 Allergy status to analgesic agent; Z88.0 Allergy status to penicillin; Z88.1 Allergy status to other antibiotic agents; Z88.8 Allergy status to other drugs, medicaments and biological substances; Z79.899 Other long term (current) drug therapy; E78.00 Pure hypercholesterolemia, unspecified; Z79.84 Long term (current) use of oral hypoglycemic drugs; E55.9 Vitamin D deficiency, unspecified; Z90.49 Acquired absence of other specified parts of digestive tract; Z98.49 Cataract extraction status, unspecified eye; Z96.659 Presence of unspecified artificial knee joint; Z87.891 Personal history of nicotine dependence
CPT/HCPCS: 36415; 80048; 80053; 83735; 84100; 84300; 85025; 97110-GP; 97116-GP; 97165-GO; 97530-GO; 97535-GO; A9270-GY; U0002